=== PATIENT | male | born 1940 | race Caucasian/White ===

== ENCOUNTER → 2021-03-10 10:15 | Outpatient (BNVA) | payer MEDICARE, SELFPAY | PROVIDERS: PCP Internal Medicine; Referring Provider Internal Medicine; Visit Provider Surgery | DX: R10.31 Right lower quadrant pain (principal) | CPT/HCPCS: 99202 ==

== ENCOUNTER 2021-03-20 07:48 | Outpatient (REF) | payer MEDICARE, SELFPAY ==
--- NOTE | ~2021-03-20 | US_ITS ---
EXAMINATION: US PELVIS, LIMITED/FOLLOW UP CLINICAL INFORMATION: Right groin pain. Question recurrent hernia. COMPARISON: None TECHNIQUE: Grayscale and color imaging of the right inguinal region using a linear transducer FINDINGS: No hernia is seen. No fluid collection is seen. There are 2 normal-appearing right inguinal lymph nodes measuring 3 x 0.7 x 2.2 cm and 2.6 x 0.9 x 1.3 cm. US/US pelvic limited IMPRESSION: No hernia seen by ultrasound.
== END 2021-03-20 07:49 | disposition home or self-care (01) ==
LOC: HO.HMGCX 07:48
PROVIDERS: PCP Internal Medicine; Visit Provider Surgery
DX: R10.31 Right lower quadrant pain (principal)
CPT/HCPCS: 76857

== ENCOUNTER → 2021-03-24 10:07 | Outpatient (BNVA) | payer MEDICARE, SELFPAY | PROVIDERS: PCP Internal Medicine; Referring Provider Internal Medicine; Visit Provider Surgery | DX: R10.31 Right lower quadrant pain (principal) | CPT/HCPCS: 99212 ==

== ENCOUNTER → 2021-09-08 13:35 | Outpatient (BNVA) | payer MEDICARE, SELFPAY | PROVIDERS: PCP Internal Medicine; Referring Provider Internal Medicine; Visit Provider Surgery | DX: R10.31 Right lower quadrant pain (principal); Z87.19 Personal history of other diseases of the digestive system | CPT/HCPCS: 99212 ==

== ENCOUNTER 2022-08-09 08:16 | Outpatient (REF) | payer MEDICARE, SELFPAY ==
--- NOTE | ~2022-08-09 | XR_ITS ---
EXAMINATION: XR LUMBOSACRAL SPINE CLINICAL INFORMATION: Low back pain. M54.50 COMPARISON: Pelvis and bilateral hips 08/09/2022. Pelvic radiograph 09/19/2019. TECHNIQUE: Three views of the lumbosacral spine. FINDINGS: There is normal lumbar segmentation with 5 nonrib-bearing lumbar vertebrae with normal lumbar lordosis. There is no focal lumbar vertebral compression or destructive process. There are prominent multilevel degenerative disc and degenerative facet changes. There is variable disc narrowing at all levels, with associated endplate sclerosis and scattered bridging osteophytes. Facet degeneration greatest L4-S1. There is borderline retrolisthesis L2-L3 and borderline spondylolisthesis grade 0-1 at L4-L5. There are degenerative changes bilateral SI joints. Visualized sacrum are unremarkable. XR/XR lumbar spine 2-3V IMPRESSION: 1. Prominent multilevel degenerative disc and degenerative facet changes. 2. Borderline retrolisthesis L2-L3 and borderline spondylolisthesis L4-L5.
--- NOTE | ~2022-08-09 | XR_ITS ---
EXAMINATION: XR BILATERAL HIPS WITH AP PELVIS CLINICAL INFORMATION: Low back and hip pain. COMPARISON: Lumbar radiographs 08/09/2022, radiographs pelvis and right hip 09/19/2019. TECHNIQUE: AP view of the pelvis is performed. Each hip is imaged in AP and frog-lateral projections. There are a total of 5 views. FINDINGS: There is no fracture or dislocation. Prominent degenerative changes are again noted lower lumbar spine. There are lesser degenerative changes bilateral SI joints. The pubis is unremarkable. Right hip orthopedic hardware is intact. There is no osteolysis. Some heterotopic bone is present adjacent to the apex right greater trochanter. There are again degenerative changes in the hips, greater on the right. XR/XR hip BI w PEL1V IMPRESSION: 1. Degenerative changes lower lumbar spine. 2. Degenerative changes bilateral hips, greater on right. 3. Right hip orthopedic hardware intact. No osteolysis. 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
== END 2022-08-09 08:17 | disposition home or self-care (01) ==
LOC: HO.HMGCX 08:16
PROVIDERS: PCP Internal Medicine; Visit Provider Nurse Practitioner Family
DX: M54.50 Low back pain, unspecified (principal); M25.551 Pain in right hip; M25.552 Pain in left hip
CPT/HCPCS: 72100; 73521

== ENCOUNTER 2023-01-18 08:42 | Outpatient (AMB) | payer MEDICARE, SELFPAY ==
--- NOTE | 2023-01-18 09:24 | AM.OFFWIN_ITS ---
Intake Vital Signs 01/18/23 09:25 BP 128/78 Blood Pressure Location Rt brachial Position Sitting Pulse 88 Pulse Source Pulse Oximeter Pulse Oximetry (%) 99 Oxygen Delivery Method Room Air Intake Visit Reasons: EST/right leg sore (lobby) Intake Note: Patienrt here for sore on right leg, he states he is unsure of how it happened or when it happened. Patient Tobacco Use Status: Never used Tobacco Allergies sulfamethoxazole [From Bactrim] Allergy (Mild, Verified 01/18/23 09:47) RASH trimethoprim [From Bactrim] Allergy (Mild, Verified 01/18/23 09:47) RASH Sulfa (Sulfonamide Antibiotics) Allergy (Unknown, Verified 01/18/23 09:47) rash bactrim Allergy (Unknown, Uncoded 01/18/23 09:47) rash Medication List - Last Reconciled 01/18/23 by Bony Zheng MD calcium carbonate 500 mg PO DAILY cholecalciferol (vitamin D3) 25 mcg PO DAILY enhhrxddttsy-cjku-zlygr acid 18-400 mg-mcg (Centrum) 1 tab PO DAILY Do you need a note to return to daycare/school/sports/work: No HPI EST/right leg sore (lobby) HPI Details 82-year-old male presents to the office for a sick visit. Patient is reporting of a small sore over the right leg. He remembers bumping into something a week ago. Patient is very active physically. [facility] Medical History Squamous cell carcinoma Surgical History History of bilateral inguinal hernia repair Social History Patient Tobacco Use Status: Never used Tobacco Physical Exam Vital Signs: Last Vital Signs Pulse 88 01/18/23 09:25 BP 128/78 01/18/23 09:25 Pulse Ox 99 01/18/23 09:25 Oxygen Delivery Method Room Air 01/18/23 09:25 Skin Other: Right leg: Sanchez: 1 cm lesion, erythematous papule. No ulceration. No tenderness. Assessment & Plan Assessment & Plan (1) Rash: Code(s): R21 - Rash and other nonspecific skin eruption Plan: Reassurance. Patient has a dermatology appointment in 3 months. I advised him to keep it. Coding Level of Care Code Est Pt Level 3 (03702) Diagnoses Rash R21
[2023-01-18 09:25] VITALS: BP 128/78; PULSE 88; O2SAT 99
== END 2023-01-18 09:53 | disposition home or self-care (01) ==
PROVIDERS: PCP Internal Medicine; Visit Provider Internal Medicine
DX: R21 Rash and other nonspecific skin eruption (principal)
CPT/HCPCS: 99213

== ENCOUNTER 2023-01-25 08:29 | Outpatient (AMB) | payer MEDICARE, SELFPAY ==
--- NOTE | 2023-01-25 09:01 | AM.OFFWIN_ITS ---
Intake Vital Signs 01/25/23 09:05 Height 5 ft 7 in Pulse 89 Pulse Source Pulse Oximeter Temp 97 F Temp Source Temporal Artery Scan Pulse Oximetry (%) 99 Oxygen Delivery Method Room Air Intake Visit Reasons: EP Spot on both legs Intake Note: Pt is here c/o red spot on both his legs. Pt states he was here last week and is frustrated, pt refused bp check. Patient Tobacco Use Status: Never used Tobacco Allergies sulfamethoxazole [From Bactrim] Allergy (Mild, Verified 01/25/23 09:05) RASH trimethoprim [From Bactrim] Allergy (Mild, Verified 01/25/23 09:05) RASH Sulfa (Sulfonamide Antibiotics) Allergy (Unknown, Verified 01/25/23 09:05) rash bactrim Allergy (Unknown, Uncoded 01/25/23 09:05) rash Do you need a note to return to daycare/school/sports/work: No HPI EP Spot on both legs HPI Details 82-year-old male presents to the office for a sick visit. In addition to the spot he showed me last week, patient reports he has another spot on the right leg. [facility] Medical History Squamous cell carcinoma Surgical History History of bilateral inguinal hernia repair Social History Patient Tobacco Use Status: Never used Tobacco Physical Exam Vital Signs: Last Vital Signs Temp 97 F 01/25/23 09:05 Pulse 89 01/25/23 09:05 Pulse Ox 99 01/25/23 09:05 Oxygen Delivery Method Room Air 01/25/23 09:05 Skin Other: Two papules over the dorsum of the legs, there are 2 in each leg. Assessment & Plan Assessment & Plan (1) Rash: Code(s): R21 - Rash and other nonspecific skin eruption Plan: It could be eczema or early skin cancer. He has a dermatology appointment scheduled. I encourage patient to keep it. Hydrocortisone cream has been ordered. Coding Level of Care Code Est Pt Level 3 (13536) Diagnoses Rash R21
[2023-01-25 09:05] VITALS: PULSE 89; TEMP 36.1; O2SAT 99
== END 2023-01-25 09:57 | disposition home or self-care (01) ==
PROVIDERS: PCP Internal Medicine; Visit Provider Internal Medicine
DX: R21 Rash and other nonspecific skin eruption (principal)
CPT/HCPCS: 99213

== ENCOUNTER 2023-05-11 12:28 | Outpatient (AMB) | payer MEDICARE, SELFPAY ==
--- NOTE | 2023-05-11 13:02 | A.OFFPC_ITS ---
Vital Signs 05/11/23 13:05 Height 5 ft 7 in Weight 133 lb BMI 20.8 BP 132/70 Blood Pressure Location Rt brachial Position Sitting Pulse 91 Pulse Source Pulse Oximeter Pulse Oximetry (%) 98 Oxygen Delivery Method Room Air Intake Visit Reasons: Establishing care with new doctor, encounter for Allergies sulfamethoxazole [From Bactrim] Allergy (Mild, Verified 05/11/23 13:05) RASH trimethoprim [From Bactrim] Allergy (Mild, Verified 05/11/23 13:05) RASH Sulfa (Sulfonamide Antibiotics) Allergy (Unknown, Verified 05/11/23 13:05) rash bactrim Allergy (Unknown, Uncoded 05/11/23 13:05) rash Medication List - Last Reconciled 05/11/23 by Yoni Abernathy MD calcium carbonate 500 mg PO DAILY cholecalciferol (vitamin D3) 25 mcg PO DAILY dpoewiumlkwd-zfaw-cdnaw acid 18-400 mg-mcg (Centrum) 1 tab PO DAILY Tobacco use date assessed: 05/11/23 Fall risk assessment: No Falls in past year Last assessed Fall Risk: 05/11/23 Dental Screening Dental Screen Date: 05/11/23 Did you have a dental visit in the last 12 months?: Yes Did you have a dental problem in the last 6 months where you did not have access to dental care?: No Was dental information given to patient?: Patient has dentist HPI HPI Comments History of Present Illness Details Patient is 83-year-old gentleman came in today for establish care visit Patient is taking care of himself doing exercises and eating healthy food He explained to me extensively how many exercise in what kind of exercises is doing every day And what he eats in breakfast and rest of the day. He does have knee pain and back pain which flares up every now and then He had an x-ray done July of this year which showed degenerative joint disease in lumbar spine and knees. Patient does admit that he is very anxious, and is requesting Xanax 0.25 mg which he takes every now and then. Explained to patient that it is not recommended for elderly instead I can send another medication for him but he needs to continue taking that at least for a month before he stops That is if he does not develop any side effects I have sent Lexapro 10 mg tablet patient is to take half a tablet for a week and then full tablet. I have also ordered labs for him that he does not want to do at this time because it makes him very anxious. He is traveling to [facility] and he will do the labs after he comes back. In last 4 years patient had bilateral inguinal hernia surgery Right hip replacement surgery by Dr. Rudd And squamous cell carcinoma surgery right upper leg. Also tells me that once in awhile his blood pressure is elevated. At this time his blood pressure is 132/70 will continue to monitor. Patient will return in August for physical exam. [facility] Medical History Squamous cell carcinoma Surgical History History of bilateral inguinal hernia repair Social History Housing: House Patient Tobacco Use Status: Never used Tobacco e-Cigarette/Vaping Use: Never Used service: No Current occupational status: retired Cognitive needs: No Hearing needs: No Vision needs: Yes Questionnaire PHQ-9 Over the last 2 weeks, how often have you been bothered by any of the following problems? 1. Little interest or pleasure in doing things: not at all 2. Feeling down, depressed, or hopeless: not at all 3. Trouble falling or staying asleep, or sleeping too much: not at all 4. Feeling tired or having little energy: not at all 5. Poor appetite or overeating: not at all 6. Feeling bad about yourself - or that you are a failure or have let yourself or your family down: not at all 7. Trouble concentrating on things, such as reading the newspaper or watching television: not at all 8. Moving or speaking so slowly that other people could have noticed. Or the opposite - being so fidgety or restless that you have been moving around a lot more than usual: not at all 9. Thoughts that you would be better off or of hurting yourself in some way: not at all Total score: 0 Depression Screening Interpretation: Negative Depression Screening Done: Yes 55227 - PHQ-9 Billing: Yes Source: Developed by Drs. Primitivo George, Izabella Silva, Casper Salazar and colleagues, with an educational risa from [employer]. Thrive Questionnaire Date Thrive assessed: 05/11/23 I am a: Patient What is your living situation today?: I have a steady place to live Within the past 12 months, did the food you bought not last and you didn't have the money to get more?: Never true Within the past 12 months, did you worry whether your food would run out before you got money to buy more?: Never true Do you have trouble paying for medicines?: No Do you have trouble getting transportation to medical appointments?: No Do you have trouble paying your heating and electricity bill?: No Do you have trouble taking care of your child, family member or friend?: No Do you have trouble with day-to-day activities such as bathing, preparing meals, shopping, managing finances, etc.?: No Are you currently unemployed and looking for a job?: No Are you interested in more education?: No Please select the resources that you would like help with: None Currently or been in a relationship where the following occur: no concerns reported AUDIT C Alcohol Use Questionnaire (AUDIT-C) 1. How often do you have a drink containing alcohol?: Never Total Score: 0 JAYA-7 AMB Questionnaire JAYA-7 Date JAYA - 7 assessed: 05/11/23 Feeling nervous, anxious, or on edge: 1 = Several days Not being able to stop or control worryin = Several days Worrying too much about different things: 1 = Several days Trouble relaxin = Several days Being so restless that it is hard to sit still: 1 = Several days Becoming easily annoyed or irritable: 1 = Several days Feeling afraid as if something awful might happen: 1 = Several days Total JAYA-7 score (0-4 normal; 5-9 mild; 10-14 moderate; 15-21 severe): 7 Source: Developed by Drs. Primitivo George, Izabella Silva, Casper Salazar and colleagues, with an educational risa from [employer]. JAYA-7 Assessment Billing JAYA-7 Assessment Tool: JAYA-7 Assessment 51727 Review of Systems Const Denies chills, Denies fever(s), Denies night sweats and Denies weight loss Eyes Denies blurry vision and Denies eye discharge ENT Denies dysphagia, Denies tinnitus, Denies sinus pressure and Denies sore throat Card Denies acrocyanosis, Denies chest pain at rest, Denies chest pain with activity, Denies syncope, Denies lightheadedness, Denies palpitations and Denies dyspnea Resp Denies chest congestion, Denies cough, Denies hemoptysis, Denies pain with cough and Denies dyspnea GI Denies dysphagia, Denies fecal incontinence, Denies diarrhea and Denies nausea Musc Denies tingling Skin/Breast Denies breast pain, Denies pruritus, Denies non-healing lesions, Denies rash and Denies jaundice Neuro Denies syncope, Denies tingling, Denies paresthesias and Denies tremor(s) Psych Denies panic attacks and Denies paranoia Endo Denies cold intolerance, Denies heat intolerance and Denies palpitations Omari/Lymph Denies easy bleeding Physical exam (Primary Care) Vital Signs: Last Vital Signs Pulse 91 05/11/23 13:05 BP 132/70 05/11/23 13:05 Pulse Ox 98 05/11/23 13:05 Oxygen Delivery Method Room Air 05/11/23 13:05 BMI result Body Mass Index 20.8 Tobacco/Smoking Status: Tobacco use Status Tobacco use date assessed 05/11/23 05/11/23 13:07 Patient Tobacco Use Status Never used Tobacco 05/11/23 13:02 e-Cigarette/Vaping Use Never Used 05/11/23 13:07 PHQ-9: PHQ-9 Score PHQ-9: Total score 0 05/11/23 13:34 Depression Screening Interpretation: Negative Thrive Assessment: Date of Thrive Assessment Date Thrive assessed 05/11/23 05/11/23 13:34 Currently or been in a relationship where the following occur: no concerns reported Const General: cooperative, comfortable and no acute distress Orientation/consciousness: patient oriented x3 HENMT Head: Yes normocephalic and Yes atraumatic Ears: hearing grossly normal bilaterally and external ears normal General nose exam: Normal external nose present Face and sinus: No erythema and No edema Mouth: lip normal and no drooling Eyes General: appearance normal, both eyes and all related structures Eyelids: Yes eyelids normal Conjunctivae: conjunctivae normal Sclerae: sclerae normal Pupils: Equal, round and reactive pupils present EOM: EOMs intact bilaterally Neck Neck: Yes trachea midline and Yes supple Resp Effort & Inspection: normal respiratory effort, no audible wheezes and no cough Auscultation: clear to auscultation bilaterally Cardio Rhythm: regular rhythm Heart sounds: S1 normal heart sound present and S2 normal heart sound present Skin General skin exam: elasticity normal and turgor normal Neuro General: patient oriented x3 and gait normal Cranial nerves: Yes Equal, round and reactive pupils present Extrem Left upper extremity: no edema Right lower extremity: no edema Psych Appearance: grossly normal Mental Status: mental status grossly normal Speech and movement: Normal speech and movement present Affect: normal affect Attitude: cooperative Thought process: Normal thought process present Thought content: Normal thought content present Insight: Good insight present (Psych) Judgement: Good judgement present (Psych) Assessment and Plan Assessment & Plan (1) Establishing care with new doctor, encounter for: Code(s): Z76.89 - Persons encountering health services in other specified circumstances (2) Anxiety about health: Code(s): F41.8 - Other specified anxiety disorders (3) Degenerative joint disease (DJD) of hip: Code(s): M16.9 - Osteoarthritis of hip, unspecified Qualifiers: Laterality: left Osteoarthritis type: primary Qualified Code(s): M16.12 - Unilateral primary osteoarthritis, left hip (4) DJD (degenerative joint disease), lumbar: Code(s): M47.816 - Spondylosis without myelopathy or radiculopathy, lumbar region Qualifiers: Spinal osteoarthritis complication: without myelopathy or radiculopathy Qualified Code(s): M47.816 - Spondylosis without myelopathy or radiculopathy, lumbar region (5) Establishing care with new doctor, encounter for: Code(s): Z76.89 - Persons encountering health services in other specified circumstances Plan Patient is 83-year-old gentleman came in today for establish care visit Patient is taking care of himself doing exercises and eating healthy food He explained to me extensively how many exercise in what kind of exercises is doing every day And what he eats in breakfast and rest of the day. He does have knee pain and back pain which flares up every now and then He had an x-ray done July of this year which showed degenerative joint disease in lumbar spine and knees. Patient does admit that he is very anxious, and is requesting Xanax 0.25 mg which he takes every now and then. Explained to patient that it is not recommended for elderly instead I can send another medication for him but he needs to continue taking that at least for a month before he stops That is if he does not develop any side effects I have sent Lexapro 10 mg tablet patient is to take half a tablet for a week and then full tablet. I have also ordered labs for him that he does not want to do at this time because it makes him very anxious. He is traveling to [facility] and he will do the labs after he comes back. In last 4 years patient had bilateral inguinal hernia surgery Right hip replacement surgery by Dr. Rudd And squamous cell carcinoma surgery right upper leg. Also tells me that once in awhile his blood pressure is elevated. At this time his blood pressure is 132/70 will continue to monitor. Patient will return in August for physical exam. Orders: Orders Complete Blood Count Auto Diff Today F41.8 - Other specified anxiety disorders, M16.9 - Osteoarthritis of hip, unspecified, M47.816 - Spondylosis without myelopathy or radiculopathy, lumbar region, Z76.89 - Persons encountering health services in other specified circumstances Lipid Panel Today F41.8 - Other specified anxiety disorders, M16.9 - Osteoarthritis of hip, unspecified, M47.816 - Spondylosis without myelopathy or radiculopathy, lumbar region, Z76.89 - Persons encountering health services in other specified circumstances Vitamin D 25-OH (D2 and D3) Today F41.8 - Other specified anxiety disorders, M16.9 - Osteoarthritis of hip, unspecified, M47.816 - Spondylosis without myelopathy or radiculopathy, lumbar region, Z76.89 - Persons encountering health services in other specified circumstances Comprehensive [place]. Panel Fast Today F41.8 - Other specified anxiety disorders, M16.9 - Osteoarthritis of hip, unspecified, M47.816 - Spondylosis without myelo dwayne or radiculopathy, lumbar region, Z76.89 - Persons encountering health services in other specified circumstances Vitamin B12 Today F41.8 - Other specified anxiety disorders, M16.9 - Osteoarthritis of hip, unspecified, M47.816 - Spondylosis without myelopathy or radiculopathy, lumbar region, Z76.89 - Persons encountering health services in other specified circumstances TSH reflex Free T4 Today F41.8 - Other specified anxiety disorders, M16.9 - Osteoarthritis of hip, unspecified, M47.816 - Spondylosis without myelopathy or radiculopathy, lumbar region, Z76.89 - Persons encountering health services in other specified circumstances Medications: New escitalopram oxalate (Lexapro) 10 mg PO DAILY 30 tabs 0RF Coding Level of Care Code New Pt Level 4 (02850) Diagnoses Establishing care with new doctor, encounter for Z76.89 Anxiety about health F41.8 Primary osteoarthritis of left hip M16.12 Laterality: left Osteoarthritis type: primary Spondylosis of lumbar region without myelopathy or radiculopathy M47.816 Spinal osteoarthritis complication: without myelopathy or radiculopathy Additional Codes JAYA-7 Assessment Billing - JAYA-7 Assessment Tool: JAYA-7 Assessment [id number] ([id number])
[2023-05-11 13:05] VITALS: BP 132/70; PULSE 91; O2SAT 98; BMI 20.8
== END 2023-05-11 13:31 | disposition home or self-care (01) ==
PROVIDERS: PCP Internal Medicine; Visit Provider Internal Medicine
DX: M16.12 Unilateral primary osteoarthritis, left hip (principal); Z76.89 Persons encountering health services in other specified circumstances; F41.8 Other specified anxiety disorders; M47.816 Spondylosis without myelopathy or radiculopathy, lumbar region
CPT/HCPCS: 99204; 99214

== ENCOUNTER 2023-10-21 11:40 | Outpatient (AMB) | payer MEDICARE, SELFPAY ==
[2023-10-21 11:45] VITALS: BP 162/82; PULSE 84; O2SAT 98; BMI 21.6
--- NOTE | 2023-10-21 11:45 | MHC.PC.OV ---
Vital Signs 10/21/23 11:45 Height 5 ft 7 in Weight 138 lb 2 oz BMI 21.6 BP 162/82 H Blood Pressure Location Rt brachial Position Sitting Pulse 84 Pulse Source Pulse Oximeter Pulse Oximetry (%) 98 Oxygen Delivery Method Room Air Intake Visit Reasons: 4 month fu Allergies sulfamethoxazole [From Bactrim] Allergy (Mild, Verified 10/21/23 11:47) RASH trimethoprim [From Bactrim] Allergy (Mild, Verified 10/21/23 11:47) RASH Sulfa (Sulfonamide Antibiotics) Allergy (Unknown, Verified 10/21/23 11:47) rash bactrim Allergy (Unknown, Uncoded 05/11/23 13:05) rash Medication List - Last Reconciled 10/21/23 by Yoni Abernathy MD calcium carbonate 500 mg PO DAILY cholecalciferol (vitamin D3) 25 mcg PO DAILY ocpooqyycyds-pvkz-zuqof acid 18-400 mg-mcg (Centrum) 1 tab PO DAILY Tobacco use date assessed: 10/21/23 Fall risk assessment: No Falls in past year Last assessed Fall Risk: 10/21/23 Dental Screening Dental Screen Date: 10/21/23 Did you have a dental visit in the last 12 months?: Yes Did you have a dental problem in the last 6 months where you did not have access to dental care?: No Was dental information given to patient?: Patient has dentist HPI 4 month fu HPI Details Patient is 83-year-old gentleman came in today with a chief complaint of high blood pressure Last time he was seen he was given Lexapro when he verbalized to feeling anxious and was requesting Xanax He never took Lexapro He also did not had labs done We talked about starting the blood pressure medication after the labs Explained to him that I need to check his kidney function and liver function 1st before I send the medication He understands and will have the labs done today He does not want to have diuretic I will send in beta-jacy for him Also complaining of pain in his left ear off and on On examination he has lot of wax in his ear but he does not want ear irrigation I have recommended to by Debrox ear drops [id number]-mjqqszt and shoes that. Patient will return in 3 months for physical examination Meanwhile he is to monitor his blood pressure at home, patient is aware that his blood pressure need to run below 140 systolic [facility] Medical History Squamous cell carcinoma Surgical History History of bilateral inguinal hernia repair Social History Housing: House Patient Tobacco Use Status: Never used Tobacco e-Cigarette/Vaping Use: Never Used service: No Current occupational status: retired Cognitive needs: No Hearing needs: No Vision needs: Yes Questionnaire PHQ-9 Over the last 2 weeks, how often have you been bothered by any of the following problems? 1. Little interest or pleasure in doing things: not at all 2. Feeling down, depressed, or hopeless: not at all 3. Trouble falling or staying asleep, or sleeping too much: not at all 4. Feeling tired or having little energy: not at all 5. Poor appetite or overeating: not at all 6. Feeling bad about yourself - or that you are a failure or have let yourself or your family down: not at all 7. Trouble concentrating on things, such as reading the newspaper or watching television: not at all 8. Moving or speaking so slowly that other people could have noticed. Or the opposite - being so fidgety or restless that you have been moving around a lot more than usual: not at all 9. Thoughts that you would be better off or of hurting yourself in some way: not at all Total score: 0 Depression Screening Interpretation: Negative Depression Screening Done: Yes 69401 - PHQ-9 Billing: Yes Source: Developed by Drs. Primitivo George, Izabella Silva, Casper Salazar and colleagues, with an educational risa from [employer]. Thrive Questionnaire Date Thrive assessed: 10/21/23 I am a: Patient What is your living situation today?: I have a steady place to live Within the past 12 months, did the food you bought not last and you didn't have the money to get more?: Never true Within the past 12 months, did you worry whether your food would run out before you got money to buy more?: Never true Do you have trouble paying for medicines?: No Do you have trouble getting transportation to medical appointments?: No Do you have trouble paying your heating and electricity bill?: No Do you have trouble taking care of your child, family member or friend?: No Do you have trouble with day-to-day activities such as bathing, preparing meals, shopping, managing finances, etc.?: No Are you currently unemployed and looking for a job?: No Are you interested in more education?: No Please select the resources that you would like help with: None Currently or been in a relationship where the following occur: no concerns reported THRIVE Score: 0 AUDIT C Alcohol Use Questionnaire (AUDIT-C) 1. How often do you have a drink containing alcohol?: Never 3. How often do you have six or more drinks on one occasion?: Never Total Score: 0 Score Reviewed/Action Taken: Yes JAYA-7 AMB Questionnaire JAYA-7 Date JAYA - 7 assessed: 10/21/23 Feeling nervous, anxious, or on edge: 1 = Several days Not being able to stop or control worryin = Several days Worrying too much about different things: 1 = Several days Trouble relaxin = Several days Being so restless that it is hard to sit still: 1 = Several days Becoming easily annoyed or irritable: 1 = Several days Feeling afraid as if something awful might happen: 1 = Several days Total JAYA-7 score (0-4 normal; 5-9 mild; 10-14 moderate; 15-21 severe): 7 Source: Developed by Drs. Primitivo George, Izabella Silva, Casper Salazar and colleagues, with an educational risa from [employer]. JAYA-7 Assessment Billing JAYA-7 Assessment Tool: JAYA-7 Assessment 08551 Review of Systems Const Denies chills and Denies fever(s) ENT Denies epistaxis and Denies nasal discharge Card Denies chest pain Resp Denies chest congestion, Denies cough and Denies hemoptysis GI Denies diarrhea and Denies nausea Skin/Breast Denies rash Neuro Reports no additional complaints Psych Reports no additional complaints Endo Reports no additional complaints Physical exam (Primary Care) Vital Signs: Last Vital Signs Pulse 84 10/21/23 11:45 BP 162/82 H 10/21/23 11:45 Pulse Ox 98 10/21/23 11:45 Oxygen Delivery Method Room Air 04/26/24 11:45 BMI result Body Mass Index 21.6 Tobacco/Smoking Status: Tobacco use Status Tobacco use date assessed 10/21/23 10/21/23 11:49 Patient Tobacco Use Status Never used Tobacco 10/21/23 11:49 e-Cigarette/Vaping Use Never Used 10/21/23 11:49 PHQ-9: PHQ-9 Score PHQ-9: Total score 0 10/21/23 11:50 Depression Screening Interpretation: Negative Thrive Assessment: Date of Thrive Assessment Date Thrive assessed 10/21/23 10/21/23 11:49 Currently or been in a relationship where the following occur: no concerns reported Const General: cooperative, comfortable and no acute distress Orientation/consciousness: patient oriented x3 HENMT Head: Yes normocephalic Eyes General: appearance normal, both eyes and all related structures Neck Neck: Yes supple Resp Effort & Inspection: normal respiratory effort, no cough and no stridor Cardio Rhythm: regular rhythm Heart sounds: S1 normal heart sound present and S2 normal heart sound present Skin General skin exam: turgor normal Neuro General: patient oriented x3, tone normal and moves all extremities Extrem Right lower extremity: no edema Left lower extremity: no edema Assessment and Plan Assessment & Plan (1) Hypertension, essential: Code(s): I10 - Essential (primary) hypertension (2) Excessive ear wax: Code(s): H61.20 - Impacted cerumen, unspecified ear Qualifiers: Laterality: right Qualified Code(s): H61.21 - Impacted cerumen, right ear (3) Anxiety about health: Code(s): F41.8 - Other specified anxiety disorders Plan Patient is 83-year-old gentleman came in today with a chief complaint of high blood pressure Last time he was seen he was given Lexapro when he verbalized to feeling anxious and was requesting Xanax He never took Lexapro He also did not had labs done We talked about starting the blood pressure medication after the labs Explained to him that I need to check his kidney function and liver function 1st before I send the medication He understands and will have the labs done today He does not want to have diuretic I will send in beta-jacy for him Also complaining of pain in his left ear off and on On examination he has lot of wax in his ear but he does not want ear irrigation I have recommended to by Debrox ear drops fvdz-[id number]-rkyeotn and shoes that. Patient will return in 3 months for physical examination Meanwhile he is to monitor his blood pressure at home, patient is aware that his blood pressure need to run below 140 systolic Orders: Orders Complete Blood Count Auto Diff Today I10 - Essential (primary) hypertension Comprehensive Met. Panel Today I10 - Essential (primary) hypertension TSH reflex Free T4 Today I10 - Essential (primary) hypertension Coding Level of Care Code Est Pt Level 4 (88651) Diagnoses Hypertension, essential I10 Excessive cerumen in right ear canal H61.21 Laterality: right Anxiety about health F41.8 Additional Codes JAYA-7 Assessment Billing - JAYA-7 Assessment Tool: JAYA-7 Assessment 87314 ([id number])
== END 2023-10-21 13:48 | disposition home or self-care (01) ==
PROVIDERS: PCP Internal Medicine; Visit Provider Internal Medicine
DX: I10 Essential (primary) hypertension (principal); H61.21 Impacted cerumen, right ear; F41.8 Other specified anxiety disorders
CPT/HCPCS: 99214

== ENCOUNTER 2023-10-21 12:11 | Outpatient (REF) | payer MEDICARE, SELFPAY ==
[2023-10-21 13:24] LABS: MANUAL DIFF FLAG NO
[2023-10-21 13:42] LABS: Basophils Percent Auto 0.6 % (0-2); Eosinophils Absolute Auto 0.1 X10*3/uL (0.0-0.4); Eosinophils Percent Auto 1.7 % (0-4); Hematocrit 39.6 % (42.0-52.0); Hemoglobin 12.9 g/dl (14.0-18.0); Imm Gran Abs Auto 0.01 X10*3/uL (0.00-0.03); Imm Gran Pct Auto 0.3 % (0.0-0.4); Lymphocytes Percent Auto 27.8 % (20-40); Mean Corpuscular HGB Conc 32.6 g/dl (31.0-36.0); Mean Corpuscular Hemoglobin 31.5 pg (27.0-33.0); Mean Corpuscular Volume 96.6 fL (80.0-98.0); Mean Platelet Volume 10.7 fL (9.4-12.4); Monocytes Absolute Auto 0.5 X10*3/uL (0.1-1.2); Monocytes Percent Auto 13.6 % (2-11); Platelet Count 131 X10*3/uL (160-400); White Blood Count 3.5 X10*3/uL (4.8-10.8)
[2023-10-21 14:46] LABS: Anion Gap 10 (12-20)
[2023-10-21 14:50] LABS: Alanine Aminotransferase 13 U/L (0-40); Albumin Level 4.3 g/dL (3.5-5.0); Alkaline Phosphatase 133 U/L (39-117); Aspartate Amino Transferase 23 U/L (5-37); Bilirubin Total 0.8 mg/dL (0.0-1.0); Blood Urea Nitrogen 31 mg/dL (9-16); Calcium 9.4 mg/dL (8.4-10.2); Carbon Dioxide 29 mmol/L (22-29); Chloride 106 mmol/L (96-108); Estimated Glomerular Filt Rate > 60; Glucose Random 97 mg/dL (60-115); Potassium 4.2 mmol/L (3.3-5.1); Sodium 141 mmol/L (135-145); Total Protein 7.7 g/dL (6.5-8.0)
== END 2023-10-21 12:12 | disposition home or self-care (01) ==
LOC: HO.HMGCLDS 12:11
PROVIDERS: PCP Internal Medicine; Visit Provider Internal Medicine
DX: I10 Essential (primary) hypertension (principal)
CPT/HCPCS: 36415; 80053; 84443; 85025

== ENCOUNTER 2023-10-31 08:07 | Outpatient (AMB) | payer MEDICARE, SELFPAY ==
[2023-10-31 08:10] VITALS: PULSE 82; O2SAT 98; BMI 21.6
--- NOTE | 2023-10-31 08:10 | MHC.OFFWIV ---
Intake Vital Signs 10/31/23 08:10 Height 5 ft 7 in Weight 138 lb BMI 21.6 Pulse 82 Pulse Source Pulse Oximeter Pulse Oximetry (%) 98 Intake Visit Reasons: EP BP Medication questions Intake Note: pt is here for BP medication clarification, patient declined BP reading and would like advise regarding why his readings at home have been elevated. Patient Tobacco Use Status: Never used Tobacco Allergies sulfamethoxazole [From Bactrim] Allergy (Mild, Verified 10/31/23 08:10) RASH trimethoprim [From Bactrim] Allergy (Mild, Verified 10/31/23 08:10) RASH Sulfa (Sulfonamide Antibiotics) Allergy (Unknown, Verified 10/31/23 08:10) rash bactrim Allergy (Unknown, Uncoded 05/11/23 13:05) rash Do you need a note to return to daycare/school/sports/work: No HPI EP BP Medication questions HPI Details 83-year-old male presents to the office for a sick visit. Patient was seen by his primary care provider last week. He was started on citalopram and blood pressure medications. Patient was diagnosed with anxiety and hypertension. He wanted to discuss the side effects and the necessity to take the medications. He reports that his blood pressure is in the 130 range when he records it at home. Reports no symptoms of headache or blurred vision. Admits to anxiety issues with racing thoughts. [facility] Medical History Squamous cell carcinoma Surgical History History of bilateral inguinal hernia repair Social History Housing: House Patient Tobacco Use Status: Never used Tobacco e-Cigarette/Vaping Use: Never Used service: No Current occupational status: retired Cognitive needs: No Hearing needs: No Vision needs: Yes Physical Exam Vital Signs: Last Vital Signs Pulse 82 10/31/23 08:10 Pulse Ox 98 10/31/23 08:10 BMI result Body Mass Index 21.6 Assessment & Plan Assessment & Plan (1) Anxiety about health: Code(s): F41.8 - Other specified anxiety disorders Plan: 15 minutes spent in discussion. Patient is very reluctant to start antihypertensives. I advised him to discuss the matter with his primary care provider. I encouraged him to rule start the citalopram. Patient wanted to take the medication at 5 mg a day. I agreed that he can started 5 mg. Patient did not want his blood pressure checked at the office today. Coding Level of Care Code Est Pt Level 3 (23922) Diagnoses Anxiety about health F41.8
== END 2023-10-31 09:30 | disposition home or self-care (01) ==
PROVIDERS: PCP Internal Medicine; Visit Provider Internal Medicine
DX: F41.8 Other specified anxiety disorders (principal)
CPT/HCPCS: 99213

== ENCOUNTER 2024-09-04 14:36 | Outpatient (AMB) | payer MEDICARE, SELFPAY ==
[2024-09-04 14:39] VITALS: BP 128/64; PULSE 80; RESP 17; O2SAT 97; BMI 21.8
--- NOTE | 2024-09-04 14:39 | A.OFFPC_ITS ---
Vital Signs 09/04/24 14:39 Height 5 ft 7 in Weight 139 lb BMI 21.8 BP 128/64 Blood Pressure Location Rt brachial Position Sitting Respiration 17 Pulse 80 Pulse Source Pulse Oximeter Pulse Oximetry (%) 97 Oxygen Delivery Method Room Air Intake Visit Reasons: Med. Review Allergies sulfamethoxazole [From Bactrim] Allergy (Mild, Verified 09/04/24 14:40) RASH trimethoprim [From Bactrim] Allergy (Mild, Verified 09/04/24 14:40) RASH Sulfa (Sulfonamide Antibiotics) Allergy (Unknown, Verified 09/04/24 14:40) rash bactrim Allergy (Unknown, Uncoded 05/11/23 13:05) rash Medication List - Last Reconciled 09/04/24 by Yoni Abernathy MD atenolol 25 mg PO DAILY calcium carbonate 500 mg PO DAILY cholecalciferol (vitamin D3) 25 mcg PO DAILY escitalopram oxalate 10 mg PO DAILY pnnmkhqqyveh-ookk-itifj acid 18-400 mg-mcg (Centrum) 1 tab PO DAILY Tobacco use date assessed: 09/04/24 Fall risk assessment: No Falls in past year Last assessed Fall Risk: 09/04/24 Dental Screening Dental Screen Date: 09/04/24 Did you have a dental visit in the last 12 months?: Yes Did you have a dental problem in the last 6 months where you did not have access to dental care?: No Was dental information given to patient?: Patient has dentist HPI Med. Review HPI Details History - The patient is an 84-year-old male pre senting with hypertension management. - Blood pressure typically measures 128 mmHg in the clinic, but home readings are lower, suggesting controlled hypertension. - Reports occasional dizziness associate d with standing, indicating possible hypotension episodes. - Antihypertensive medication compliance is influenced by home readings and occasional dizziness. - Diagnosed with anxiety, currently unde r treatment with Lexapro, which is reportedly effective. - Labs indicate mild anemia with hemoglo bin at 12.9 g/dL; potential iron deficiency etiology considered. - Diet is primarily salads, with limited carbohydrates and sugar, suggesting attention to diabetic tendencies. - Prior elevated liver enzyme discussed, but patient attributes this to normal a ging processes. Problem List - Essential Hypertension - Anxiety Disorder - Iron Deficiency Anemia - Pre-Diabetes Patient Instructions - Monitor blood pressure regularly at [facility]. - Stop antihypertensive medication if ex periencing dizziness. - Continue taking Lexapro as prescribed. - Begin taking an gstg-yeg-qqmoxuf iron supplement. - Schedule and complete lab tests today for further evaluation. - Maintain current diet but consider inc reasing iron-rich foods or supplements. - Schedule a follow-up appointment in si x months. - Get labs drawn today and await notific ation if any follow-up is needed. Review of Systems. - General: No fever no chills - Neurological: No headaches no dizziness - Ear nose throat: No sore throat no hearing difficulty no ear pain - Cardiovascular: No syncope, no chest pain, no palpitations - Gastrointestinal: No nausea vomiting or diarrhea - Endocrine: No polyuria polydipsia no heat intolerance - Genitourinary: No dysuria , no blood in urine Physical Exam - General: No acute distress - HEENT: No acute findings - Neck: Supple - Respiratory system: Able to talk in f ull sentences, no audible wheeze - cardiovascular: S1-S2 regular in rat e and rhythm - Gastrointestinal: No pain - Extremities: No new findings - 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 1. Little interest or pleasure in doing things: not at all 2. Feeling down, depressed, or hopeless: not at all 3. Trouble falling or staying asleep, or sleeping too much: not at all 4. Feeling tired or having little energy: not at all 5. Poor appetite or overeating: not at all 6. Feeling bad about yourself - or that you are a failure or have let yourself or your family down: not at all 7. Trouble concentrating on things, such as reading the newspaper or watching television: not at all 8. Moving or speaking so slowly that other people could have noticed. Or the opposite - being so fidgety or restless that you have been moving around a lot more than usual: not at all 9. Thoughts that you would be better off or of hurting yourself in some way: not at all Total score: 0 Depression Screening Interpretation: Negative Depression Screening Done: Yes 09669 - PHQ-9 Billing: Yes Source: Developed by Drs. Primitivo George, Izabella Silva, Casper Salazar and colleagues, with an educational risa from [employer]. Thrive Questionnaire Date Thrive assessed: 09/04/24 I am a: Patient What is your living situation today?: I have a steady place to live Within the past 12 months, did the food you bought not last and you didn't have the money to get more?: Never true Within the past 12 months, did you worry whether your food would run out before you got money to buy more?: Never true Do you have trouble paying for medicines?: No Do you have trouble getting transportation to medical appointments?: No Do you have trouble paying your heating and electricity bill?: No Do you have trouble taking care of your child, family member or friend?: No Do you have trouble with day-to-day activities such as bathing, preparing meals, shopping, managing finances, etc.?: No Are you currently unemployed and looking for a job?: No Are you interested in more education?: Yes Please select the resources that you would like help with: None Currently or been in a relationship where the following occur: No concerns reported THRIVE Score: 0 AUDIT C Alcohol Use Questionnaire (AUDIT-C) 1. How often do you have a drink containing alcohol?: Never 3. How often do you have six or more drinks on one occasion?: Never Total Score: 0 Score Reviewed/Action Taken: Yes JAYA-7 AMB Questionnaire JAYA-7 Date JAYA - 7 assessed: 09/04/24 Feeling nervous, anxious, or on edge: 0 = Not at all Not being able to stop or control worryin = Not at all Worrying too much about different things: 0 = Not at all Trouble relaxin = Not at all Being so restless that it is hard to sit still: 0 = Not at all Becoming easily annoyed or irritable: 0 = Not at all Feeling afraid as if something awful might happen: 0 = Not at all Total JAYA-7 score (0-4 normal; 5-9 mild; 10-14 moderate; 15-21 severe): 0 Source: Developed by Drs. Primitivo George, Izabella Silva, Casper Salazar and colleagues, with an educational risa from [employer]. JAYA-7 Assessment Billing JAYA-7 Assessment Tool: JAYA-7 Assessment 08561 Physical exam (Primary Care) Vital Signs: Last Vital Signs Pulse 80 09/04/24 14:39 Resp 17 09/04/24 14:39 BP 128/64 09/04/24 14:39 Pulse Ox 97 09/04/24 14:39 Oxygen Delivery Method Room Air 09/04/24 14:39 BMI result Body Mass Index 21.8 Tobacco/Smoking Status: Tobacco use Status Tobacco use date assessed 09/04/24 09/04/24 14:46 Patient Tobacco Use Status Never used Tobacco 09/04/24 14:46 e-Cigarette/Vaping Use Never Used 09/04/24 14:46 PHQ-9: PHQ-9 Score PHQ-9: Total score 0 09/04/24 14:46 Depression Screening Interpretation: Negative Thrive Assessment: Date of Thrive Assessment Date Thrive assessed 09/04/24 09/04/24 14:46 Currently or been in a relationship where the following occur: No concerns reported Coding Level of Care Code Est Pt Level 4 (15167) Complex EM visit Add On G2211 Diagnoses Hypertension, essential I10 Anxiety, generalized F41.1 Microcytic anemia D50.9 Additional Codes JAYA-7 Assessment Billing - JAYA-7 Assessment Tool: JAYA-7 Assessment 94206 ([id number]) PHQ-9 - 54504 - PHQ-9 Billing: Yes ([id number]) Assessment & Plan Assessment & Plan (1) Hypertension, essential: Code(s): I10 - Essential (primary) hypertension Category: Medical (2) Anxiety, generalized: Code(s): F41.1 - Generalized anxiety disorder Category: Medical (3) Microcytic anemia: Code(s): D50.9 - Iron deficiency anemia, unspecified Category: Medical Plan History - The patient is an 84-year-old male presenting with hypertension management. - Blood pressure typically measures 128 mmHg in the clinic, but home readings are lower, suggesting controlled hypertension. - Reports occasional dizziness associated with standing, indicating possible hypotension episodes. - Antihypertensive medication compliance is influenced by home readings and occasional dizziness. - Diagnosed with anxiety, currently under treatment with Lexapro, which is reportedly effective. - Labs indicate mild anemia with hemoglobin at 12.9 g/dL; potential iron deficiency etiology considered. - Diet is primarily salads, with limited carbohydrates and sugar, suggesting attention to diabetic tendencies. - Prior elevated liver enzyme discussed, but patient attributes this to normal aging processes. Problem List - Essential Hypertension - Anxiety Disorder - Iron Deficiency Anemia - Pre-Diabetes Patient Instructions - Monitor blood pressure regularly at home. - Stop antihypertensive medication if experiencing dizziness. - Continue taking Lexapro as prescribed. - Begin taking an smmx-fuo-gjoyikw iron supplement. - Schedule and complete lab tests today for further evaluation. - Maintain current diet but consider increasing iron-rich foods or supplements. - Schedule a follow-up appointment in six months. - Get labs drawn today and await notification if any follow-up is needed. Orders: Orders Complete Blood Count Auto Diff Today I10 - Essential (primary) hypertension Comprehensive Met. Panel Today I10 - Essential (primary) hypertension LDL Cholesterol Direct Today I10 - Essential (primary) hypertension
== END 2024-09-04 15:05 | disposition home or self-care (01) ==
LOC: HO.HMCC 14:37
PROVIDERS: PCP Internal Medicine; Visit Provider Internal Medicine
DX: I10 Essential (primary) hypertension (principal); F41.1 Generalized anxiety disorder; D50.9 Iron deficiency anemia, unspecified

== ENCOUNTER 2024-09-04 14:36 | Outpatient (REF) | payer MEDICARE, SELFPAY ==
[2024-09-04 16:50] LABS: MANUAL DIFF FLAG NO
[2024-09-04 16:55] LABS: Basophils Percent Auto 0.5 % (0-2); Eosinophils Absolute Auto 0.1 X10*3/uL (0.0-0.4); Hematocrit 35.3 % (42.0-52.0); Hemoglobin 11.5 g/dl (14.0-18.0); Imm Gran Abs Auto 0.01 X10*3/uL (0.00-0.03); Imm Gran Pct Auto 0.2 % (0.0-0.4); Lymphocytes Percent Auto 22.5 % (20-40); Mean Corpuscular HGB Conc 32.6 g/dl (31.0-36.0); Mean Corpuscular Volume 98.3 fL (80.0-98.0); Monocytes Absolute Auto 0.6 X10*3/uL (0.1-1.2); Monocytes Percent Auto 12.7 % (2-11); Neutrophils Absolute Auto 2.7 x10*3/uL (2.0-8.3); Neutrophils Percent Auto 62.1 % (45-73); Platelet Count 151 X10*3/uL (160-400); Red Blood Count 3.59 X10*6/uL (4.60-5.80); Red Cell Distribution Width 13.5 % (11.0-16.0); White Blood Count 4.4 X10*3/uL (4.8-10.8)
[2024-09-04 17:15] LABS: Alanine Aminotransferase 27 U/L (0-40); Albumin Level 4.1 g/dL (3.5-5.0); Alkaline Phosphatase 115 U/L (39-117); Anion Gap 13 (12-20); Aspartate Amino Transferase 33 U/L (5-37); Bilirubin Total 0.8 mg/dL (0.0-1.0); Blood Urea Nitrogen 49 mg/dL (9-16); Calcium 9.5 mg/dL (8.4-10.2); Carbon Dioxide 26 mmol/L (22-29); Chloride 108 mmol/L (96-108); Estimated Glomerular Filt Rate 46; Glucose Random 92 mg/dL (60-115); Sodium 142 mmol/L (135-145); Total Protein 7.7 g/dL (6.5-8.0)
[2024-09-05 08:13] LABS: LDL Cholesterol Direct 66 mg/dL (<100)
== END 2024-09-04 14:37 | disposition home or self-care (01) ==
LOC: HO.HMGCLDS 14:36
PROVIDERS: PCP Internal Medicine; Visit Provider Internal Medicine
DX: I10 Essential (primary) hypertension (principal); F41.1 Generalized anxiety disorder; D50.9 Iron deficiency anemia, unspecified
CPT/HCPCS: 36415; 80053; 83721; 85025; 96127; 99212

== ENCOUNTER 2024-11-27 07:54 | Outpatient (REF) | payer MEDICARE, SELFPAY ==
--- NOTE | ~2024-11-27 | XR_ITS ---
EXAMINATION: XR HIP, LEFT CLINICAL INFORMATION: M25.552 - Pain in left hip COMPARISON: 09/06/2022 TECHNIQUE: AP and frog-leg lateral views of the left hip. FINDINGS: Small osteophytes are present at the femoral head margin in a rim of the acetabulum and along the fovea. There is likely very faint linear chondrocalcinosis in the articular cartilage of the left hip joint seen laterally and inferomedially. Hip joint space demonstrates no additional narrowing since the prior. Moderate obstructive chest patient is again noted in the femoral arteries. There is minimal patchy opacification along the pubic symphysis joint. The joint is narrowed superiorly. Multiple rounded calcifications somewhat lucent centers are projecting over the central and left hemipelvis consistent with phleboliths. 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 Moderate vascular calcifications in the femoral arteries Electronically signed by: Moises Arceo MD 11/27/2024 10:54 AM EDT
[2024-11-27 10:44] LABS: Hematocrit 37.2 % (42.0-52.0); Hemoglobin 12.2 g/dl (14.0-18.0)
[2024-11-27 11:20] LABS: Anion Gap 12 (12-20); Blood Urea Nitrogen 38 mg/dL (9-16); Calcium 9.5 mg/dL (8.4-10.2); Carbon Dioxide 28 mmol/L (22-29); Chloride 105 mmol/L (96-108); Estimated Glomerular Filt Rate 49; Glucose Random 102 mg/dL (60-115); Potassium 4.8 mmol/L (3.3-5.1); Sodium 140 mmol/L (135-145)
[2024-11-27 11:38] LABS: Ferritin 140 ng/mL (20-250)
== END 2024-11-27 07:55 | disposition home or self-care (01) ==
LOC: HO.HMGCX 07:54
PROVIDERS: PCP Internal Medicine; Visit Provider Internal Medicine
DX: M25.552 Pain in left hip (principal); R79.89 Other specified abnormal findings of blood chemistry; D50.9 Iron deficiency anemia, unspecified; L91.8 Other hypertrophic disorders of the skin; F41.1 Generalized anxiety disorder; I10 Essential (primary) hypertension
CPT/HCPCS: 36415; 73502; 80048; 82728; 85014; 85018; 99212

== ENCOUNTER 2024-11-27 08:22 | Outpatient (AMB) | payer MEDICARE, SELFPAY ==
[2024-11-27 08:24] VITALS: BP 140/72; PULSE 61; TEMP 36.6; O2SAT 98; BMI 21.2
--- NOTE | 2024-11-27 08:24 | AM.OFFWIN_ITS ---
Intake Vital Signs 11/27/24 08:24 Height 5 ft 7 in Weight 135 lb 6 oz BMI 21.2 BP 140/72 H Blood Pressure Location Lt brachial Position Sitting Pulse 61 Pulse Source Pulse Oximeter Temp 97.9 F Temp Source Oral Pulse Oximetry (%) 98 Oxygen Delivery Method Room Air Intake Visit Reasons: EP Muscle ache in leg Intake Note: Pt presents to the office today for c/o a muscle ache on his leg. Pt states this started a few months ago. Pt states its not painful but it is uncomfortable. Patient Tobacco Use Status: Never used Tobacco Allergies sulfamethoxazole [From Bactrim] Allergy (Mild, Verified 11/27/24 08:27) RASH trimethoprim [From Bactrim] Allergy (Mild, Verified 11/27/24 08:27) RASH Sulfa (Sulfonamide Antibiotics) Allergy (Unknown, Verified 11/27/24 08:27) rash bactrim Allergy (Unknown, Uncoded 11/27/24 08:27) rash Medication List - Last Reconciled 11/27/24 by Yoni Abernathy MD atenolol 25 mg PO DAILY calcium carbonate 500 mg PO DAILY cholecalciferol (vitamin D3) 25 mcg PO DAILY escitalopram oxalate 10 mg PO DAILY hchdhflvkzhk-ofhz-qwoce acid 18-400 mg-mcg (Centrum) 1 tab PO DAILY HPI EP Muscle ache in leg HPI Details History - The patient is an 84-year-old male pre senting with muscle soreness in the left buttock. - Onset: The soreness began two months a go. - Quality and Severity: Described as mus seamus soreness rather than pain, with discomfort rated about 0.5 to 1 on a scale of 10. - Timing and Duration: Symptoms are abse nt in the morning upon waking but worsen later in the day. - Provoking Factors: Activity like walki ng improves the soreness, whereas engaging in the total gym causes some soreness. - Alleviating Factors: Cold packs provid e temporary relief. - Associated Symptoms: There is no radia tion of pain, weakness, or numbness in the leg or toes. No pain going down the leg. - Activities: Patient performs [employer] 30 minutes, six days a week, and does not experience increased soreness after this exercise. Medical History: - Anxiety - Essential Hypertension Medications: - Atenolol for hypertension - Lexapro for anxiety Diagnostic Results: - Past laboratory showing creatinine lev el: 1.47 mg/dL (borderline kidney function) Problem List - Osteoarthritis left hip - Anxiety - Essential Hypertension - skin tag - elevated creatinine Patient Instructions - Get the ordered X-ray of the hip done next. - If the discomfort persists or worsens, seek further evaluation. - Continue using a cold pack as it provi hiwot some relief. - Stay informed about the results of the hip X-ray and kidney function. - if you like to have Dermatology referr al let me know to remove the skin tag left hip - continue medication for anxiety and hy pertension monitor blood pressure at home Review of Systems - General: No fever no chills - Neurological: No headaches no dizziness - Ear nose throat: No sore throat no hearing difficulty no ear pain - Cardiovascular: No syncope, no chest pain, no palpitations - Gastrointestinal: No nausea vomiting or diarrhea - Endocrine: No polyuria polydipsia no heat intolerance - Genitourinary: No dysuria , no blood in urine Physical Exam General: No acute distress HEENT: No acute findings Neck: Supple Respiratory system: Able to talk in full sentences, no audible wheeze Cardiovascular: S1-S2 regular in rate and rhythm Gastrointestinal: No pain Extremities: No new findings range of motion hips intact Back exam revealed slight kyphosis no pain with percussion over lumbar spine RPG PROGRAMMER ANALYST: Alert awake oriented x3 motor sensory intact Skin: Normal turgor, presence of a skin tag noted left Hip, large PFSH Medical History Squamous cell carcinoma Surgical History History of bilateral inguinal hernia repair Social History Housing: House Patient Tobacco Use Status: Never used Tobacco e-Cigarette/Vaping Use: Never Used service: No Current occupational status: retired Cognitive needs: No Hearing needs: No Vision needs: Yes Physical Exam Vital Signs: Last Vital Signs Temp 97.9 F 11/27/24 08:24 Pulse 61 11/27/24 08:24 BP 140/72 H 11/27/24 08:24 Pulse Ox 98 11/27/24 08:24 Oxygen Delivery Method Room Air 11/27/24 08:24 BMI result Body Mass Index 21.2 Assessment & Plan Assessment & Plan (1) Hip pain, left: Code(s): M25.552 - Pain in left hip (2) Elevated serum creatinine: Code(s): R79.89 - Other specified abnormal findings of blood chemistry (3) Hypertension, essential: Code(s): I10 - Essential (primary) hypertension (4) Skin tag: Code(s): L91.8 - Other hypertrophic disorders of the skin (5) Anxiety, generalized: Code(s): F41.1 - Generalized anxiety disorder Plan History - The patient is an 84-year-old male presenting with muscle soreness in the left buttock. - Onset: The soreness began two months ago. - Quality and Severity: Described as muscle soreness rather than pain, with discomfort rated about 0.5 to 1 on a scale of 10. - Timing and Duration: Symptoms are absent in the morning upon waking but worsen later in the day. - Provoking Factors: Activity like walking improves the soreness, whereas engaging in the total gym causes some soreness. - Alleviating Factors: Cold packs provide temporary relief. - Associated Symptoms: There is no radiation of pain, weakness, or numbness in the leg or toes. No pain going down the leg. - Activities: Patient performs [employer] 30 minutes, six days a week, and does not experience increased soreness after this exercise. Medical History: - Anxiety - Essential Hypertension Medications: - Atenolol for hypertension - Lexapro for anxiety Diagnostic Results: - Past laboratory showing creatinine level: 1.47 mg/dL (borderline kidney function) Problem List - Osteoarthritis left hip - Anxiety - Essential Hypertension - skin tag - elevated creatinine Patient Instructions - Get the ordered X-ray of the hip done next. - If the discomfort persists or worsens, seek further evaluation. - Continue using a cold pack as it provides some relief. - Stay informed about the results of the hip X-ray and kidney function. - if you like to have Dermatology referral let me know to remove the skin tag left hip - continue medication for anxiety and hypertension monitor blood pressure at home Orders: Orders XR hip LT min 2V Today M25.552 - Pain in left hip Coding Level of Care Code Est Pt Level 4 (62120) Diagnoses Hip pain, left M25.552 Elevated serum creatinine R79.89 Hypertension, essential I10 Skin tag L91.8 Anxiety, generalized F41.1
== END 2024-11-27 08:57 | disposition home or self-care (01) ==
PROVIDERS: PCP Internal Medicine; Visit Provider Internal Medicine
DX: M25.552 Pain in left hip (principal); R79.89 Other specified abnormal findings of blood chemistry; I10 Essential (primary) hypertension; L91.8 Other hypertrophic disorders of the skin; F41.1 Generalized anxiety disorder

== ENCOUNTER → 2024-11-27 08:54 | Outpatient (BNV) | payer MEDICARE, SELFPAY | PROVIDERS: PCP Internal Medicine; Visit Provider Radiology Diagnostic Radiology | DX: M16.12 Unilateral primary osteoarthritis, left hip (principal) | CPT/HCPCS: 73502 ==

== ENCOUNTER 2025-01-11 08:01 | Outpatient (AMB) | payer MEDICARE, SELFPAY ==
--- OUTSIDE RECORDS SUMMARY | 2025-01-11 08:03 | XMS_ITS | Patient Health Record ---
Author Organization [facility] Address [address] [place] [id number] Care Team Providers Care Bottle Tester Name Role Phone Primitivo Martinez Unavailable [phone] Reason For Referral No Information Plan Of Treatment No Information
[2025-01-11 08:08] VITALS: BP 132/50; PULSE 64; TEMP 36.7; O2SAT 98; BMI 21.0
--- NOTE | 2025-01-11 08:08 | AM.OFFWIN_ITS ---
Intake Vital Signs 01/11/25 08:08 Height 5 ft 7 in Weight 134 lb BMI 21.0 BP 132/50 L Blood Pressure Location Rt brachial Position Sitting Pulse 64 Pulse Source Pulse Oximeter Temp 98.1 F Temp Source Oral Pulse Oximetry (%) 98 Oxygen Delivery Method Room Air Intake Visit Reasons: EP-lt arm sore Intake Note: presents with left upper arm pain with rotation for a couple weeks, denies any specific injury Patient Tobacco Use Status: Never used Tobacco Allergies sulfamethoxazole (From Bactrim) Allergy (Mild, Verified 01/11/25 08:11) RASH trimethoprim (From Bactrim) Allergy (Mild, Verified 11/27/24 08:27) RASH Sulfa (Sulfonamide Antibiotics) Allergy (Unknown, Verified 11/27/24 08:27) rash bactrim Allergy (Unknown, Uncoded 11/27/24 08:27) rash Medication List - Last Reconciled 01/11/25 by Yoni Abernathy MD atenolol 25 mg PO DAILY calcium carbonate 500 mg PO DAILY cholecalciferol (vitamin D3) 25 mcg PO DAILY escitalopram oxalate 10 mg PO DAILY ferrous sulfate 324 mg PO DAILY yupsgggbiyfb-orgx-glfeg acid 18-400 mg-mcg (Centrum) 1 tab PO DAILY turmeric root extract 500 mg PO DAILY Do you need a note to return to daycare/school/sports/work: No HPI EP-lt arm sore HPI Details History - The patient is an 84-year-old male pre senting with arm pain. - The pain is located in the left arm an d associated with the biceps tendon. - The onset of pain is linked to exercis es performed on a total gym, where the patient engages in routine workouts three times a week. - The pain is exacerbated by specific ar m movements, such as twisting, rotating internally, and a downward motion. - The patient reports taking Tylenol and turmeric with no relief. - Pain also did not improve with ibuprof en or Aleve. - Past attempts at alleviation include t he use of ice and some stretching exercises, though the patient remains uncertain which specific exercises help. - The pain has been recurrent and presen tly more prevalent. Medications: - Tylenol ? attempted use for arm pain w ithout relief. - Turmeric ? taken for perceived anti-in flammatory benefit, without noticeable effect. - Ibuprofen ? attempted use for pain rel ief, no effect noted. Social History: - The patient has been lifting weights f or 15 years, with recent cessation due to pain. - Exercise routine includes use of a [employer] gym three times a week. - The patient denies the use of narcotic s. Diagnostic Results: - Labs: Patient had labs done in November, idney function was noted to be fine. A previous slight elevation in kidney function was mentioned. Problem List - Biceps Tendinitis Patient Instructions - Take prescribed medication for tendini tis. - Avoid lifting weights for a couple of weeks. - Begin physical therapy as soon as poss ible. Review of Systems - General: No fever no chills - Neurological: No headaches no dizziness - Ear nose throat: No sore throat no hearing difficulty no ear pain - Cardiovascular: No syncope, no chest pain, no palpitations - Gastrointestinal: No nausea vomiting or diarrhea Physical Exam General: No acute distress HEENT: No acute findings Neck: Supple Respiratory system: Able to talk in full sentences Gastrointestinal: No pain Extremities: Tenderness in the left biceps tendon with palpation, shoulder with full range of motion elbow with full range of motion CHANGE CONTROL COORDINATOR: Alert awake oriented x3 motor sensory intact Skin: Normal turgor PFSH Medical History Squamous cell carcinoma Surgical History History of bilateral inguinal hernia repair Social History Housing: House Patient Tobacco Use Status: Never used Tobacco e-Cigarette/Vaping Use: Never Used service: No Current occupational status: retired Cognitive needs: No Hearing needs: No Vision needs: Yes Physical Exam Vital Signs: Last Vital Signs Temp 98.1 F 01/11/25 08:08 Pulse 64 01/11/25 08:08 BP 132/50 L 01/11/25 08:08 Pulse Ox 98 01/11/25 08:08 Oxygen Delivery Method Room Air 01/11/25 08:08 BMI result Body Mass Index 21.0 Assessment & Plan Assessment & Plan (1) Biceps tendinitis of left shoulder: Code(s): M75.22 - Bicipital tendinitis, left shoulder Plan History - The patient is an 84-year-old male presenting with arm pain. - The pain is located in the left arm and associated with the biceps tendon. - The onset of pain is linked to exercises performed on a total gym, where the patient engages in routine workouts three times a week. - The pain is exacerbated by specific arm movements, such as twisting, rotating internally, and a downward motion. - The patient reports taking Tylenol and turmeric with no relief. - Pain also did not improve with ibuprofen or Aleve. - Past attempts at alleviation include the use of ice and some stretching exercises, though the patient remains uncertain which specific exercises help. - The pain has been recurrent and presently more prevalent. Medications: - Tylenol ? attempted use for arm pain without relief. - Turmeric ? taken for perceived anti-inflammatory benefit, without noticeable effect. - Ibuprofen ? attempted use for pain relief, no effect noted. Social History: - The patient has been lifting weights for 15 years, with recent cessation due to pain. - Exercise routine includes use of a total gym three times a week. - The patient denies the use of narcotics. Diagnostic Results: - Labs: Patient had labs done in November, kidney function was noted to be fine. A previous slight elevation in kidney function was mentioned. Problem List - Biceps Tendinitis Patient Instructions - Take prescribed medication for tendinitis. - Avoid lifting weights for a couple of weeks. - Begin physical therapy as soon as possible. Orders: Orders 2 PT Evaluation and Treatment Today M75.22 - Bicipital tendinitis, left shoulder Medications: New diclofenac potassium 50 mg PO BID 14 tabs 0RF Coding Level of Care Code Est Pt Level 3 (87248) Diagnoses Biceps tendinitis of left shoulder M75.22
== END 2025-01-11 08:43 | disposition home or self-care (01) ==
PROVIDERS: PCP Internal Medicine; Visit Provider Internal Medicine
DX: M75.22 Bicipital tendinitis, left shoulder (principal)

== ENCOUNTER → 2025-01-11 08:01 | Outpatient (BNVA) | payer MEDICARE, SELFPAY | PROVIDERS: PCP Internal Medicine; Visit Provider Internal Medicine | DX: M75.22 Bicipital tendinitis, left shoulder (principal) | CPT/HCPCS: 99212 ==

== ENCOUNTER 2025-01-29 07:56 | Outpatient (REF) | payer MEDICARE, SELFPAY ==
--- NOTE | ~2025-01-29 | XR_ITS ---
EXAMINATION: XR SHOULDER 2 OR MORE VIEWS LEFT HISTORY: M25.512 - Pain in left shoulder COMPARISON: There are no prior studies available for comparison. FINDINGS: Five views of the left shoulder are submitted. Osseous mineralization is normal. There is no fracture or dislocation. The glenohumeral joint space is maintained. There is moderate osteoarthritis of the AC joint with joint space narrowing and osteophyte formation. The soft tissues are unremarkable. XR/XR shoulder LT min 2V IMPRESSION: Moderate osteoarthritis of the AC joint. Electronically signed by: Primitivo Zee MD 01/29/2025 09:03 AM EDT
== END 2025-01-29 07:57 | disposition home or self-care (01) ==
LOC: HO.HMGCX 07:56
PROVIDERS: PCP Internal Medicine; Visit Provider Physician Assistant Medical
DX: M25.512 Pain in left shoulder (principal); M79.622 Pain in left upper arm
CPT/HCPCS: 73030; 99212

== ENCOUNTER 2025-01-29 07:56 | Outpatient (AMB) | payer MEDICARE, SELFPAY ==
--- OUTSIDE RECORDS SUMMARY | 2025-01-29 07:59 | XMS_ITS | Patient Health Record ---
Author Organization [facility] Address [address] [place] [address] Care Team Providers Care Field Sampling Technician Name Role Phone Primitivo Martinez Unavailable [phone] Reason For Referral No Information Plan Of Treatment No Information
--- NOTE | 2025-01-29 08:11 | AM.OFFWIN_ITS ---
Intake Vital Signs 01/29/25 08:12 Height 5 ft 7 in Weight 134 lb BMI 21.0 BP 136/60 Blood Pressure Location Rt brachial Position Sitting Pulse 61 Pulse Source Pulse Oximeter Temp 97.4 F Temp Source Oral Pulse Oximetry (%) 97 Oxygen Delivery Method Room Air Intake Visit Reasons: EP-lt shoulder pain Intake Note: presents with left shoulder for a couple months Patient Tobacco Use Status: Never used Tobacco Allergies sulfamethoxazole (From Bactrim) Allergy (Mild, Verified 01/29/25 08:17) RASH trimethoprim (From Bactrim) Allergy (Mild, Verified 01/29/25 08:17) RASH Sulfa (Sulfonamide Antibiotics) Allergy (Unknown, Verified 01/29/25 08:17) rash bactrim Allergy (Unknown, Uncoded 11/27/24 08:27) rash Do you need a note to return to daycare/school/sports/work: No HPI HPI Comments History of Present Illness Details History of Present Illness - The patient is an 84-year-old male pre senting with shoulder pain and biceps muscle discomfort. - The shoulder pain began a couple of mo nths ago, with discomfort primarily in the shoulder and biceps muscle. - The patient has been participating in physical therapy and exercises for 16 years, including [employer] and [employer]. - The pain is described as an ache, vary ing with arm positioning, and no history of dislocation or popping is noted. - He states that the pain is in the fro nt of the left shoulder and upper arm. - Pain is a 2/10 and worse with movement . - Has never had an x-ray in the past. - He denies numbness, tingling, lower ar m pain, elbow pain, wrist pain, or hand pain. Physical Exam General: Cooperative, healthy appearing, comfortable, no acute distress and well developed Respiratory: Normal respiratory effort and able to speak in complete sentences. Clear to auscultation bilaterally Cardiovascular: Regular rate and rhythm. Normal S1 and S2 Skin: No rashes or lesions noted Neuro: Sensation is intact. Extremities: Normal to inspection. FROM of the left shoulder. No click noted. Supination and pronation is intact. TTP of the left bicipital groove. FROM of the left elbow and wrist. 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 Strength is 5/5 on the UE. Patient was informed and verbally consented to the use of an ambient scribe for clinic note documentation during this visit. [facility] Medical History Squamous cell carcinoma Surgical History History of bilateral inguinal hernia repair Social History Housing: House Patient Tobacco Use Status: Never used Tobacco e-Cigarette/Vaping Use: Never Used service: No Current occupational status: retired Cognitive needs: No Hearing needs: No Vision needs: Yes Review of Systems Const All systems reviewed & are unremarkable except as noted in HPI and below Physical Exam Vital Signs: Last Vital Signs Temp 97.4 F 01/29/25 08:12 Pulse 61 01/29/25 08:12 BP 136/60 01/29/25 08:12 Pulse Ox 97 01/29/25 08:12 Oxygen Delivery Method Room Air 01/29/25 08:12 BMI result Body Mass Index 21.0 Assessment & Plan Assessment & Plan (1) Shoulder pain, left: Code(s): M25.512 - Pain in left shoulder Qualifiers: Chronicity: acute Qualified Code(s): M25.512 - Pain in left shoulder Plan Most likely strain vs bicep tendonitis vs tear vs rotator cuff injury Plan - Activities as tolerated - Continue with PT - An x-ray of the shoulder will be conducted to evaluate for structural issues. - Referral to orthopedics is made for further assessment and potential MRI to evaluate muscle and tendon conditions. - Differential diagnoses include biceps tendon tear, tendinitis, and rotator cuff injury. Orders: Orders XR shoulder LT min 2V Today M25.512 - Pain in left shoulder Referrals Orthopedics Referral M25.512 - Pain in left shoulder Coding Level of Care Code Est Pt Level 4 (72506) Diagnoses Acute pain of left shoulder M25.512 Chronicity: acute
[2025-01-29 08:12] VITALS: BP 136/60; PULSE 61; TEMP 36.3; O2SAT 97; BMI 21.0
== END 2025-01-29 09:22 | disposition home or self-care (01) ==
PROVIDERS: PCP Internal Medicine; Visit Provider Physician Assistant Medical
DX: M25.512 Pain in left shoulder (principal)

== ENCOUNTER → 2025-01-29 08:34 | Outpatient (BNV) | payer MEDICARE, SELFPAY | PROVIDERS: PCP Internal Medicine; Visit Provider Radiology Diagnostic Radiology | DX: M19.012 Primary osteoarthritis, left shoulder (principal) | CPT/HCPCS: 73030 ==

== ENCOUNTER 2025-02-13 08:06 | Outpatient (AMB) | payer MEDICARE, SELFPAY ==
[2025-02-13 08:27] VITALS: BMI 21.0
--- NOTE | 2025-02-13 08:27 | MHC.OFFVIS ---
Vital Signs 02/13/25 08:27 Height 5 ft 7 in Weight 134 lb BMI 21.0 Intake Visit Reasons: UC f/u Pain in left shoulder Intake Note: Jaylan is an 84 year old right hand dominant male who presents today as a new patient for an evaluation of left shoulder pain. Patient was seen at [facility] [place] [facility] on 2 separate occasions with complaints of ongoing shoulder pain that has been present for months that may have been caused from exercises performed on a total gym. He had x-rays and was referred to physical therapy, due to ongoing pain he was referred to orthopedics. Today patient reports he attended 2 sessions of physical therapy and was given at home exercises. Currently he has an ache with ROM. He has discomfort in his whole shoulder and travels down to his bicep with certain exercises and twisting motions. Finds no relief with muscle rubs. Allergies sulfamethoxazole (From Bactrim) Allergy (Mild, Verified 02/13/25 08:32) RASH trimethoprim (From Bactrim) Allergy (Mild, Verified 02/13/25 08:32) RASH Sulfa (Sulfonamide Antibiotics) Allergy (Unknown, Verified 02/13/25 08:32) rash bactrim Allergy (Unknown, Uncoded 02/13/25 08:32) rash HPI HPI UC f/u Pain in left shoulder: Details: 85 yo male presents to the office today for ongoing left shoulder pain. He is quite active individual and states he does daily exercises with his total gym that consist of a lot of overhead and behind the back positions. He states when he is working out he feels pain in the left shoulder. He states he is able to perform activities like a biceps curl without pain. He has done physical therapy and also tried [id number] medications without significant relief. [facility] Medical History (Updated 02/13/25 @ 09:16 by Jesika Romero PA-C) Squamous cell carcinoma Surgical History (Updated 02/13/25 @ 08:34 by KIM Rendon) History of hip surgery History of bilateral inguinal hernia repair Social History (Updated 02/13/25 @ 08:40 by KIM Rendon) Housing: House Patient Tobacco Use Status: Never used Tobacco e-Cigarette/Vaping Use: Never Used service: No Current occupational status: retired Current occupation: right hand dominant Cognitive needs: No Hearing needs: No Vision needs: Yes Review of Systems Const All systems reviewed & are unremarkable except as noted in HPI and below Physical Exam Vital Signs: BMI result Body Mass Index 21.0 Const General: cooperative and no acute distress Orientation/consciousness: patient oriented x3 Resp Effort & Inspection: normal respiratory effort and able to speak in complete sentences Cardio Peripheral pulses: Peripheral pulses 2+ throughout Neuro General: patient oriented x3 Extrem Other: Patient has significant protraction of bilateral scapula. He has full range of motion in all planes and a positive Raymundo. He is able to activate rotator cuff strength in all positions without deficits. Neurovascularly intact. Results Reviewed Results Reviewed: Previously obtained x-rays of the left shoulder demonstrate downsloping acromion Assessment & Plan Assessment & Plan (1) Impingement syndrome, shoulder, left: Code(s): M75.42 - Impingement syndrome of left shoulder Category: Medical Plan: I explained the condition to the patient along with options available. I explained he should try to avoid overhead activities if this is continuing to cause pain. I encouraged him to continue working with physical therapy to improve his posture and scapular stabilization along with rotator cuff strength. We did briefly discuss the role of steroid injections however I strongly feel without the correction of his posture he is going to continue having this discomfort. If symptoms continue or worsen over the next 3 months the patient will see me back to discuss injection otherwise follow up as needed. Coding Level of Care Code New Pt Level 3 (19325) Complex EM visit Add On G2211 Diagnoses Impingement syndrome, shoulder, left M75.42
--- OUTSIDE RECORDS SUMMARY | 2025-02-13 08:29 | XMS_ITS | Patient Health Record ---
Author Organization [facility] Address [address] [place] [id number] Care Team Providers Care Office Mover Name Role Phone Primitivo Martinez Unavailable [phone] Reason For Referral No Information Plan Of Treatment No Information
== END 2025-02-13 09:59 | disposition home or self-care (01) ==
LOC: HO.HOS 08:07
PROVIDERS: PCP Internal Medicine; Visit Provider Physician Assistant
DX: M75.42 Impingement syndrome of left shoulder (principal)
CPT/HCPCS: 99203; G2211

== ENCOUNTER → 2025-02-13 08:06 | Outpatient (BNVA) | payer MEDICARE, SELFPAY | PROVIDERS: PCP Internal Medicine; Visit Provider Physician Assistant | DX: M75.42 Impingement syndrome of left shoulder (principal) | CPT/HCPCS: 99202 ==

== ENCOUNTER 2025-03-08 09:59 | Outpatient (AMB) | payer MEDICARE, SELFPAY ==
[2025-03-08 10:03] VITALS: BP 128/66; PULSE 60; O2SAT 98; BMI 20.7
--- NOTE | 2025-03-08 10:03 | MHC.PC.OV ---
Vital Signs 03/08/25 10:03 Height 5 ft 7 in Weight 132 lb BMI 20.7 BP 128/66 Blood Pressure Location Rt brachial Position Sitting Pulse 60 Pulse Source Pulse Oximeter Pulse Oximetry (%) 98 Oxygen Delivery Method Room Air Intake Visit Reasons: 6m follow up Allergies sulfamethoxazole (From Bactrim) Allergy (Mild, Verified 03/08/25 10:03) RASH trimethoprim (From Bactrim) Allergy (Mild, Verified 03/08/25 10:03) RASH Sulfa (Sulfonamide Antibiotics) Allergy (Unknown, Verified 03/08/25 10:03) rash bactrim Allergy (Unknown, Uncoded 02/13/25 08:32) rash Medication List - Last Reconciled 03/08/25 by Yoni Abernathy MD atenolol 25 mg PO DAILY calcium carbonate 500 mg PO DAILY cholecalciferol (vitamin D3) 25 mcg PO DAILY escitalopram oxalate 10 mg PO DAILY ferrous sulfate 324 mg PO DAILY gjxtsontfpoa-iaid-jhjgb acid 18-400 mg-mcg (Centrum) 1 tab PO DAILY turmeric root extract 500 mg PO DAILY Tobacco use date assessed: 09/04/24 Fall risk assessment: No Falls in past year Last assessed Fall Risk: 03/08/25 Dental Screening Dental Screen Date: 09/04/24 HPI 6m follow up HPI Details History The patient is an 85-year-old male presenting with osteoarthritis and anxiety. Osteoarthritis: - The patient reports moderate osteoarthritis of the left AC joint. - He is currently undergoing physical therapy focused on exercises such as stretching. - An X-ray has confirmed the diagnosis - Reports inquiries about potential treatment options, specifically corticosteroid injections. - Skeptical about corticosteroid injections due to concerns about muscle deterioration and limited effectiveness. - Describes pain level as about 1 or 2, without significant impact on daily activities. Patient has already been evaluated by Orthopedic Anxiety: - The patient reports chronic anxiety experienced throughout his life. - Currently managed on escitalopram, 10 mg, experienced decreased anxiety and significant reduction in stomach-related anxiety symptoms. - Shows reluctance to increase escitalopram dosage despite discussions about increasing it to 20 mg if desired. - Mentions specific anxiety trigger related to a friend flying [facility]. Nephropathy: With GFR in 40s I would recommend not to take any ibuprofen for shoulder pain Hypertension: Patient is on atenolol 25 mg, blood pressure is well-controlled and he is tolerating medication Continue vitamin-D for deficiency Patient is also on iron supplement Medical History: - Osteoarthritis of the left AC joint. - Anxiety, long-standing, managed currently with escitalopram. - Compromised kidney function noted from past lab results. - hypertension - iron-deficiency Medications: - Atenolol 25 mg for hypertension. - Escitalopram (Estelibram) 10 mg for anxiety. 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 - Engages in physical activity, such as walking a friend's dog and exercise routines for about an hour and a half daily. - Maintains a diabetic diet including nuts, chicken, salad, and avoids coconut oil and Nutella. - No history of smoking, minimal alcohol use in the distant past. - Experiences weight fluctuations with a current weight of 132 pounds; previously 134 pounds. Problem List - Osteoarthritis of the left AC joint - Anxiety generalized - Compromised kidney function - iron-deficiency - vitamin-D deficiency [place] of Care - Patient to inquire further with an forensic identification specialist regarding DNA therapy possibilities and the prospect of corticosteroid injections, while discussing existing perceptions and hesitations. Patient Instructions - Continue prescribed medications: Atenolol and escitalopram. - Avoid taking ibuprofen due to compromised kidney function. - Complete the repeat blood test before the next visit. - Engage in physical activity as tolerated without overexertion. - Maintain current diet and nutritional habits. - Consider reviewing with an forensic identification specialist for further treatment options. Review of Systems General: No fever no chills neurological: No headaches no dizziness ear nose throat: No sore throat no hearing difficulty no ear pain cardiovascular: No syncope, no chest pain, no palpitations gastrointestinal: No nausea vomiting or diarrhea endocrine: No polyuria polydipsia no heat intolerance genitourinary: No dysuria skin: No new complaints Physical Exam general: No acute distress HEENT: No acute findings neck: Supple respiratory system: Able to talk in full sentences, no audible wheeze, no stridor cardiovascular: S1-S2 RRR gastrointestinal: No pain extremities: No new findings STAVE LOG RIPSAW OPERATOR: Alert awake oriented x3 motor sensory intact skin: Normal turgor PFSH Medical History Squamous cell carcinoma Surgical History History of hip surgery History of bilateral inguinal hernia repair Social History Housing: House Patient Tobacco Use Status: Never used Tobacco e-Cigarette/Vaping Use: Never Used service: No Current occupational status: retired Current occupation: right hand dominant Cognitive needs: No Hearing needs: No Vision needs: Yes Questionnaire Thrive Questionnaire Date Thrive assessed: 09/04/24 I am a: Patient What is your living situation today?: I have a steady place to live Within the past 12 months, did the food you bought not last and you didn't have the money to get more?: Never true Within the past 12 months, did you worry whether your food would run out before you got money to buy more?: Never true Do you have trouble paying for medicines?: No Do you have trouble getting transportation to medical appointments?: No Do you have trouble paying your heating and electricity bill?: No Do you have trouble taking care of your child, family member or friend?: No Do you have trouble with day-to-day activities such as bathing, preparing meals, shopping, managing finances, etc.?: No Are you currently unemployed and looking for a job?: No Are you interested in more education?: Yes Please select the resources that you would like help with: None Currently or been in a relationship where the following occur: No concerns reported THRIVE Score: 0 AUDIT C Alcohol Use Questionnaire (AUDIT-C) 1. How often do you have a drink containing alcohol?: Never 3. How often do you have six or more drinks on one occasion?: Never Total Score: 0 Score Reviewed/Action Taken: Yes JAYA-7 AMB Questionnaire JAYA-7 Date JAYA - 7 assessed: 03/08/25 Feeling nervous, anxious, or on edge: 0 = Not at all Not being able to stop or control worryin = Not at all Worrying too much about different things: 1 = Several days Trouble relaxin = Not at all Being so restless that it is hard to sit still: 0 = Not at all Becoming easily annoyed or irritable: 0 = Not at all Feeling afraid as if something awful might happen: 0 = Not at all Total JAYA-7 score (0-4 normal; 5-9 mild; 10-14 moderate; 15-21 severe): 1 Source: Developed by Drs. Primitivo George, Izabella Silva, Casper Salazar and colleagues, with an educational risa from [employer]. JAYA-7 Assessment Billing JAYA-7 Assessment Tool: JAYA-7 Assessment 78209 Physical exam (Primary Care) Vital Signs: Last Vital Signs Pulse 60 03/08/25 10:03 BP 128/66 03/08/25 10:03 Pulse Ox 98 03/08/25 10:03 Oxygen Delivery Method Room Air 03/08/25 10:03 BMI result Body Mass Index 20.7 Tobacco/Smoking Status: Tobacco use Status Tobacco use date assessed 09/04/24 03/08/25 10:03 Patient Tobacco Use Status Never used Tobacco 03/08/25 10:03 e-Cigarette/Vaping Use Never Used 03/08/25 10:03 Thrive Assessment: Date of Thrive Assessment Date Thrive assessed 09/04/24 03/08/25 10:03 Currently or been in a relationship where the following occur: No concerns reported Coding Level of Care Code Est Pt Level 4 (29100) Complex EM visit Add On G2211 Diagnoses Hypertension, essential I10 Spondylosis of lumbar region without myelopathy or radiculopathy M47.816 Spinal osteoarthritis complication: without myelopathy or radiculopathy Anxiety, generalized F41.1 Nephropathy N28.9 Primary osteoarthritis of left shoulder M19.012 Osteoarthritis type: primary Arthritis of left acromioclavicular joint M19.012 Laterality: left Additional Codes JAYA-7 Assessment Billing - JAYA-7 Assessment Tool: JAYA-7 Assessment 13145 ([id number]) Assessment & Plan Assessment & Plan (1) Hypertension, essential: Code(s): I10 - Essential (primary) hypertension Category: Medical (2) DJD (degenerative joint disease), lumbar: Code(s): M47.816 - Spondylosis without myelopathy or radiculopathy, lumbar region Category: Medical Qualifiers: Spinal osteoarthritis complication: without myelopathy or radiculopathy Qualified Code(s): M47.816 - Spondylosis without myelopathy or radiculopathy, lumbar region (3) Anxiety, generalized: Code(s): F41.1 - Generalized anxiety disorder Category: Medical (4) Nephropathy: Code(s): N28.9 - Disorder of kidney and ureter, unspecified Category: Medical (5) Osteoarthritis of left shoulder: Code(s): M19.012 - Primary osteoarthritis, left shoulder Category: Medical Qualifiers: Osteoarthritis type: primary Qualified Code(s): M19.012 - Primary osteoarthritis, left shoulder (6) Acromioclavicular joint arthritis: Code(s): M19.019 - Primary osteoarthritis, unspecified shoulder Category: Medical Qualifiers: Laterality: left Qualified Code(s): M19.012 - Primary osteoarthritis, left shoulder Plan History The patient is an 85-year-old male presenting with osteoarthritis and anxiety. Osteoarthritis: - The patient reports moderate osteoarthritis of the left AC joint. - He is currently undergoing physical therapy focused on exercises such as stretching. - An X-ray has confirmed the diagnosis - Reports inquiries about potential treatment options, specifically corticosteroid injections. - Skeptical about corticosteroid injections due to concerns about muscle deterioration and limited effectiveness. - Describes pain level as about 1 or 2, without significant impact on daily activities. Patient has already been evaluated by Orthopedic Anxiety: - The patient reports chronic anxiety experienced throughout his life. - Currently managed on escitalopram, 10 mg, experienced decreased anxiety and significant reduction in stomach-related anxiety symptoms. - Shows reluctance to increase escitalopram dosage despite discussions about increasing it to 20 mg if desired. - Mentions specific anxiety trigger related to a friend flying back from [facility]. Nephropathy: With GFR in 40s I would recommend not to take any ibuprofen for shoulder pain Hypertension: Patient is on atenolol 25 mg, blood pressure is well-controlled and he is tolerating medication Continue vitamin-D for deficiency Patient is also on iron supplement Medical History: - Osteoarthritis of the left AC joint. - Anxiety, long-standing, managed currently with escitalopram. - Compromised kidney function noted from past lab results. - hypertension - iron-deficiency Medications: - Atenolol 25 mg for hypertension. - Escitalopram (Estelibram) 10 mg for anxiety. 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 - Engages in physical activity, such as walking a friend's dog and exercise routines for about an hour and a half daily. - Maintains a diabetic diet including nuts, chicken, salad, and avoids coconut oil and Nutella. - No history of smoking, minimal alcohol use in the distant past. - Experiences weight fluctuations with a current weight of 132 pounds; previously 134 pounds. Problem List - Osteoarthritis of the left AC joint - Anxiety generalized - Compromised kidney function - iron-deficiency - vitamin-D deficiency - shoulder pain left [place] of Care - Patient to inquire further with an forensic identification specialist regarding DNA therapy possibilities and the prospect of corticosteroid injections, while discussing existing perceptions and hesitations. Patient Instructions - Continue prescribed medications: Atenolol and escitalopram. - Avoid taking ibuprofen due to compromised kidney function. - Complete the repeat blood test before the next visit. - Engage in physical activity as tolerated without overexertion. - Maintain current diet and nutritional habits. - Consider reviewing with an forensic identification specialist for further treatment options. Orders: Orders Complete Blood Count Auto Diff Today F41.1 - Generalized anxiety disorder, I10 - Essential (primary) hypertension, M00.112 - Pneumococcal arthritis, left shoulder, M47.816 - Spondylosis without myelopathy or radiculopathy, lumbar region, N28.9 - Disorder of kidney and ureter, unspecified Comprehensive Met. Panel Today F41.1 - Generalized anxiety disorder, I10 - Essential (primary) hypertension, M00.112 - Pneumococcal arthritis, left shoulder, M47.816 - Spondylosis without myelopathy or radiculopathy, lumbar region, N28.9 - Disorder of kidney and ureter, unspecified Vitamin D 25-OH (D2 and D3) Today F41.1 - Generalized anxiety disorder, I10 - Essential (primary) hypertension, M00.112 - Pneumococcal arthritis, left shoulder, M47.816 - Spondylosis without myelopathy or radiculopathy, lumbar region, N28.9 - Disorder of kidney and ureter, unspecified LDL Cholesterol Direct Today F41.1 - Generalized anxiety disorder, I10 - Essential (primary) hypertension, M00.112 - Pneumococcal arthritis, left shoulder, M47.816 - Spondylosis without myelopathy or radiculopathy, lumbar region, N28.9 - Disorder of kidney and ureter, unspecified Medications: Refilled escitalopram oxalate 10 mg PO DAILY 90 tabs 0RF atenolol 25 mg PO DAILY 90 tabs 0RF
--- OUTSIDE RECORDS SUMMARY | 2025-03-08 11:18 | XMS_ITS | Patient Health Record ---
Author Organization [facility] Address [address] [place] [id number] Care Team Providers Care Cardiology Technician Name Role Phone Primitivo Martinez Unavailable [phone] Reason For Referral No Information Plan Of Treatment No Information
== END 2025-03-08 10:40 | disposition home or self-care (01) ==
LOC: HO.HMCC 10:00
PROVIDERS: PCP Internal Medicine; Visit Provider Internal Medicine
DX: I10 Essential (primary) hypertension (principal); M47.816 Spondylosis without myelopathy or radiculopathy, lumbar region; F41.1 Generalized anxiety disorder; N28.9 Disorder of kidney and ureter, unspecified; M19.012 Primary osteoarthritis, left shoulder

== ENCOUNTER → 2025-03-08 09:59 | Outpatient (BNVA) | payer MEDICARE, SELFPAY | PROVIDERS: PCP Internal Medicine; Visit Provider Internal Medicine | DX: F41.1 Generalized anxiety disorder (principal); I10 Essential (primary) hypertension; M47.816 Spondylosis without myelopathy or radiculopathy, lumbar region; N28.9 Disorder of kidney and ureter, unspecified; M19.012 Primary osteoarthritis, left shoulder; M00.1 Pneumococcal arthritis and polyarthritis | CPT/HCPCS: 96127; 99212 ==

== ENCOUNTER 2025-03-19 09:00 | Outpatient (RCR) | payer MEDICARE, SELFPAY ==
--- NOTE | 2025-01-21 12:21 | MHC.PT.EP ---
[facility] [place] [facility] [place] [facility] [place] [facility] [address] [phone] F: [phone] F: [phone] F: [phone] F: [phone] Physical Therapy Plan of Care Date of Evaluation: 01/21/25 Date of Surgery: Diagnosis: This is an 84 yo male presenting to skilled PT with a script for bicipital tendonitis of L shoulder. Assessment: This is an 84 yo male presenting to skilled PT with a script for bicipital tendonitis of L shoulder. Patient reporting pain in bicep muscle for about a month now. He thinks this stemmed from doing his total gym exercises (reports that he has been doing these for over 10 years). He does these every other day and his [employer] track. He does not recall a specific incident however. Pain varies on the day but for the most part pain increases when he internally rotates his arm (impingement positioning), sharp at times but mainly dull ache. Assessment reveals pain that ranges from up to a /10 at the worst. Patient demos decreased R shoulder and cervical ROM, strength of B shoulder's, and impaired posture with forward head, increased thoracic kyphosis and very rounded shoulders. Based on functional limitations, impaired QOL and pain tolerance patient is a good candidate for skilled PT 2x/wk for 4wks. Frequency and Duration: The patient will be seen 2x/wk for 4wks Short Term Goals: (In 2 weeks) Demo I with HEP Improve shoulder AROM by at least 10 degs Demo proper scapular recruitment with appropriate shoulder strengthening exercises Auto Design Detailer Goals: (in 4 wks) Improve shoulder nonpainful AROM to almost near equal B Demo at least 1 grade improvement in MMT for shoulder Improve SPADI by at least 10 points Improve overall functional QOL by at least 50% Treatment Plan: Modalities to reduce pain, spasms and effusion. Manual therapy to restore motion and function. Therapeutic exercise to improve strength and flexibility. Neuromuscular re-education for posture and balance. Therapeutic activities to return to functional activities of daily living. Electronically signed by: Ct Chamberlain PT Please sign and return to therapist. Thank you for your referral.
--- NOTE | 2025-04-02 11:08 | MHC.PT.DC ---
[facility] [place] Office [place] Office [place] Office [address] Tony Graff [address] [phone] F: [phone] F: [phone] F: [phone] F: [phone] Physical Therapy Discharge Report Diagnosis: This is an 84 yo male presenting to skilled PT with a script for bicipital tendonitis of L shoulder. Date of Surgery: Date of Evaluation: 01/21/25 Date of Discharge: 04/02/25 Treatments to Date: 4 Cancellations to Date: 0 No Shows to Date: 0 Discharge Status: Achieved Goals Improved Function Independent with HEP Patient Elected to Stop Discharge Summary: 03/19: Patient understands exercises, demos good form this time around without need for many cues from PT. Patient had questions on medication, anatomy and pain management and PT answered what was appropriate for scope of practice with education on referral out for other aspects. Patient to continue on his own for now, he feels comfortable with this. His pain does not get higher than a 3/10, demos increased thoracic kyphosis but WFL shoulder ROM. Educated on continuing to strengthen scapular stabilizers and back muscles. Patient feels like he can continue on his own at this time. Electronically signed by: Ct Chamberlain, PT Please sign and return to therapist. Thank you for your referral.
== END 2025-04-02 11:09 | disposition home or self-care (01) ==
LOC: HO.PTCHIC 09:00
PROVIDERS: PCP Internal Medicine; Visit Provider Internal Medicine
DX: M75.22 Bicipital tendinitis, left shoulder (principal)
CPT/HCPCS: 97110; 97162

== ENCOUNTER 2025-05-30 08:39 | Outpatient (REF) | payer MEDICARE, SELFPAY ==
--- OUTSIDE RECORDS SUMMARY | 2025-05-30 09:26 | XMS_ITS | Patient Health Record ---
Author Organization [facility] Address [address] [place] [phone] Care Team Providers Care Director Vaccine Name Role Phone Primitivo Martinez Unavailable [phone] Reason For Referral No Information Plan Of Treatment No Information
[2025-05-30 10:28] LABS: MANUAL DIFF FLAG NO
[2025-05-30 10:34] LABS: Hematocrit 35.4 % (42.0-52.0); Hemoglobin 11.5 g/dl (14.0-18.0); Imm Gran Abs Auto 0.03 X10*3/uL (0.00-0.03); Imm Gran Pct Auto 0.8 % (0.0-0.4); Lymphocytes Absolute Auto 0.8 X10*3/uL (1.2-4.9); Mean Corpuscular HGB Conc 32.5 g/dl (31.0-36.0); Mean Corpuscular Hemoglobin 31.2 pg (27.0-33.0); Mean Corpuscular Volume 95.9 fL (80.0-98.0); NRBC Abs Auto 0.000 X10*3/uL (0.0-0.012); NRBC Pct Auto 0.0 /100WBC (0.0-0.2); Platelet Count 141 X10*3/uL (160-400); Red Blood Count 3.69 X10*6/uL (4.60-5.80); White Blood Count 3.9 X10*3/uL (4.8-10.8)
[2025-05-30 10:42] LABS: Alanine Aminotransferase 15 U/L (0-40); Albumin Level 4.2 g/dL (3.5-5.0); Alkaline Phosphatase 112 U/L (39-117); Anion Gap 13 (12-20); Aspartate Amino Transferase 27 U/L (5-37); Blood Urea Nitrogen 52 mg/dL (9-16); Calcium 9.2 mg/dL (8.4-10.2); Carbon Dioxide 28 mmol/L (22-29); Chloride 106 mmol/L (96-108); Estimated Glomerular Filt Rate 44; Potassium 5.5 mmol/L (3.3-5.1); Sodium 141 mmol/L (135-145); Total Protein 7.0 g/dL (6.5-8.0)
[2025-06-03 07:24] LABS: Vitamin D 25-OH, D2 <4 ng/mL; Vitamin D 25-OH, D3 65 ng/mL; Vitamin D 25-OH, Total 65 ng/mL (30-100)
== END 2025-05-30 08:40 | disposition home or self-care (01) ==
LOC: HO.HMGCLDS 08:39
PROVIDERS: PCP Internal Medicine; Visit Provider Internal Medicine
DX: I10 Essential (primary) hypertension (principal); M47.816 Spondylosis without myelopathy or radiculopathy, lumbar region; F41.1 Generalized anxiety disorder; M00.1 Pneumococcal arthritis and polyarthritis; N28.9 Disorder of kidney and ureter, unspecified; Z13.21 Encounter for screening for nutritional disorder
CPT/HCPCS: 36415; 80053; 82306; 83721; 85025

== ENCOUNTER 2025-06-03 09:20 | Outpatient (REF) | payer MEDICARE, SELFPAY ==
[2025-06-03 11:30] LABS: Anion Gap 16 (12-20); Blood Urea Nitrogen 39 mg/dL (9-16); Calcium 9.4 mg/dL (8.4-10.2); Carbon Dioxide 26 mmol/L (22-29); Chloride 103 mmol/L (96-108); Estimated Glomerular Filt Rate 42; Potassium 4.0 mmol/L (3.3-5.1); Sodium 141 mmol/L (135-145)
== END 2025-06-03 09:21 | disposition home or self-care (01) ==
LOC: HO.HMGCLDS 09:20
PROVIDERS: PCP Internal Medicine; Visit Provider Internal Medicine
DX: E87.5 Hyperkalemia (principal)
CPT/HCPCS: 36415; 80048

== ENCOUNTER 2025-06-11 07:57 | Outpatient (AMB) | payer MEDICARE, SELFPAY ==
--- OUTSIDE RECORDS SUMMARY | 2025-06-11 08:08 | XMS_ITS | Patient Health Record ---
Author Organization [facility] Address [address] [place] [id number] Care Team Providers Care Dormitory Supervisor Name Role Phone Primitivo Martinez Unavailable [phone] Reason For Referral No Information Plan Of Treatment No Information
--- NOTE | 2025-06-11 08:12 | MHC.PC.OV ---
Vital Signs 06/11/25 08:13 Height 5 ft 7 in Weight 133 lb BMI 20.8 BP 150/70 H Blood Pressure Location Rt brachial Position Sitting Pulse 57 Pulse Source Pulse Oximeter Pulse Oximetry (%) 98 Intake Visit Reasons: 3 mo follow up Allergies sulfamethoxazole (From Bactrim) Allergy (Mild, Verified 06/11/25 08:14) RASH trimethoprim (From Bactrim) Allergy (Mild, Verified 06/11/25 08:14) RASH Sulfa (Sulfonamide Antibiotics) Allergy (Unknown, Verified 06/11/25 08:14) rash bactrim Allergy (Unknown, Uncoded 02/13/25 08:32) rash Medication List - Last Reconciled 06/11/25 by Yoni Abernathy MD atenolol 25 mg PO DAILY calcium carbonate 500 mg PO DAILY cholecalciferol (vitamin D3) 25 mcg PO DAILY escitalopram oxalate 10 mg PO DAILY ferrous sulfate 324 mg PO DAILY [id number]-elgw-wvpxo acid 18-400 mg-mcg (Centrum) 1 tab PO DAILY sodium polystyrene sulfonate 15 grams (60 mL) PO DAILY 3 days turmeric root extract 500 mg PO DAILY Tobacco use date assessed: 09/04/24 Fall risk assessment: No Falls in past year Last assessed Fall Risk: 06/11/25 Dental Screening Dental Screen Date: 09/04/24 HPI 3 mo follow up HPI Details Is 85-year-old gentleman came in today for his regular follow-up appointment Recently he had labs done which showed compromised renal function and elevated potassium He was treated with potassium lowering medication and labs were repeated. repeated labs shows normal potassium but his GFR is getting worse and is now 42 patient was notified of his lab values and given time to ask question He understands that it is time for him to see a Nephrology. His blood pressure is slightly elevated today however he is very nervous. He is taking atenolol 25 mg for blood pressure management and is tolerating medication well He is also on Lexapro 10 mg for anxiety. He has modified his diet as well and is taking low potassium diet. He will return in six-month for follow-up appointment Meanwhile I have ordered another set of lab to be done in 1-2 months to keep an eye on his kidney functions. [facility] Medical History Squamous cell carcinoma Surgical History History of hip surgery History of bilateral inguinal hernia repair Social History Housing: House Patient Tobacco Use Status: Never used Tobacco e-Cigarette/Vaping Use: Never Used service: No Current occupational status: retired Current occupation: right hand dominant Cognitive needs: No Hearing needs: No Vision needs: Yes Questionnaire Thrive Questionnaire Date Thrive assessed: 09/04/24 I am a: Patient What is your living situation today?: I have a steady place to live Within the past 12 months, did the food you bought not last and you didn't have the money to get more?: Never true Within the past 12 months, did you worry whether your food would run out before you got money to buy more?: Never true Do you have trouble paying for medicines?: No Do you have trouble getting transportation to medical appointments?: No Do you have trouble paying your heating and electricity bill?: No Do you have trouble taking care of your child, family member or friend?: No Do you have trouble with day-to-day activities such as bathing, preparing meals, shopping, managing finances, etc.?: No Are you currently unemployed and looking for a job?: No Are you interested in more education?: Yes Please select the resources that you would like help with: None Currently or been in a relationship where the following occur: No concerns reported THRIVE Score: 0 JAYA-7 AMB Questionnaire JAYA-7 Date JAYA - 7 assessed: 03/08/25 Source: Developed by Drs. Primitivo George, Izabella Silva, Casper Salazar and colleagues, with an educational risa from [employer]. Physical exam (Primary Care) Vital Signs: Last Vital Signs Pulse 57 06/11/25 08:13 BP 150/70 H 06/11/25 08:13 Pulse Ox 98 06/11/25 08:13 BMI result Body Mass Index 20.8 Tobacco/Smoking Status: Tobacco use Status Tobacco use date assessed 09/04/24 06/11/25 08:14 Patient Tobacco Use Status Never used Tobacco 06/11/25 08:14 e-Cigarette/Vaping Use Never Used 06/11/25 08:14 Thrive Assessment: Date of Thrive Assessment Date Thrive assessed 09/04/24 06/11/25 08:14 Currently or been in a relationship where the following occur: No concerns reported Coding Level of Care Code Est Pt Level 3 (64935) Add On Problem Visit Only Diagnoses Hypertension, essential I10 Nephropathy N28.9 Anxiety, generalized F41.1 Assessment & Plan Assessment & Plan (1) Hypertension, essential: Code(s): I10 - Essential (primary) hypertension Category: Medical (2) Nephropathy: Code(s): N28.9 - Disorder of kidney and ureter, unspecified Category: Medical (3) Anxiety, generalized: Code(s): F41.1 - Generalized anxiety disorder Category: Medical Plan Is 85-year-old gentleman came in today for his regular follow-up appointment Recently he had labs done which showed compromised renal function and elevated potassium He was treated with potassium lowering medication and labs were repeated. repeated labs shows normal potassium but his GFR is getting worse and is now 42 patient was notified of his lab values and given time to ask question He understands that it is time for him to see a Nephrology. His blood pressure is slightly elevated today however he is very nervous. He is taking atenolol 25 mg for blood pressure management and is tolerating medication well He is also on Lexapro 10 mg for anxiety. He has modified his diet as well and is taking low potassium diet. He will return in six-month for follow-up appointment Meanwhile I have ordered another set of lab to be done in 1-2 months to keep an eye on his kidney functions. Orders: Orders Ferritin Today F41.1 - Generalized anxiety disorder, I10 - Essential (primary) hypertension, N28.9 - Disorder of kidney and ureter, unspecified Basic Metabolic Panel Today F41.1 - Generalized anxiety disorder, I10 - Essential (primary) hypertension, N28.9 - Disorder of kidney and ureter, unspecified Referrals Nephrology Referral I10 - Essential (primary) hypertension, N28.9 - Disorder of kidney and ureter, unspecified
[2025-06-11 08:13] VITALS: BP 150/70; PULSE 57; O2SAT 98; BMI 20.8
== END 2025-06-11 08:37 | disposition home or self-care (01) ==
LOC: HO.HMCC 07:58
PROVIDERS: PCP Internal Medicine; Visit Provider Internal Medicine
DX: I10 Essential (primary) hypertension (principal); N28.9 Disorder of kidney and ureter, unspecified; F41.1 Generalized anxiety disorder

== ENCOUNTER → 2025-06-11 07:57 | Outpatient (BNVA) | payer MEDICARE, SELFPAY | PROVIDERS: PCP Internal Medicine; Visit Provider Internal Medicine | DX: I10 Essential (primary) hypertension (principal); N28.9 Disorder of kidney and ureter, unspecified; F41.1 Generalized anxiety disorder | CPT/HCPCS: 99212 ==